=== PATIENT | male | born 1940 | race Caucasian/White ===

== ENCOUNTER 2022-08-31 17:56 | Inpatient (IN) | payer MEDICARE, OTHER, SELFPAY ==
[2022-08-31 17:58] VITALS: BP 151/65; PULSE 67; RESP 20; TEMP 36.2; O2SAT 91; BMI 21.9
--- NOTE | 2022-08-31 18:48 | EKG12_ITS ---
Test Reason : LOWER EXREMITY PAIN Blood Pressure : / mmHG Vent. Rate : 083 BPM Atrial Rate : 083 BPM P-R Int : 164 ms QRS Dur : 078 ms QT Int : 368 ms P-R-T Axes : 075 -30 051 degrees QTc Int : 432 ms Sinus rhythm with occasional Premature ventricular complexes Left axis deviation Nonspecific T wave abnormality Abnormal ECG Confirmed by RAINE YARBROUGH, ANJEL ([id number]), art editor WHITNEY EMERSON ([id number]) on 09/04/2022 11:07:30 AM Referred By: Confirmed By:CHRISTIANNE NI MD
[2022-08-31] MEDS: Ondansetron 4 MG/2 ML Vial IV (18:56)
[2022-08-31] MEDS: Morphine 4 MG/ML Syringe IV (18:56)
--- NOTE | 2022-08-31 19:15 | EDS_ITS ---
HPI History of Present Illness Chief Complaint: Lower Extremity Injury Narrative Narrative: 82-year-old male presenting via EMS for initial report of abdominal pain. He reports that his bilateral legs hurt. He states his abdomen does not hurt. Patient is a very poor informant. He does state that he lives at home alone. He has minimal help. He denies history of fall. He does appear to be confused. He cannot really give a good medical history. The most I can tell is that he has had pain in his legs for 2 days. He states he cannot walk. PFSH PFSH Medical History no medical history Home Medications aspirin 325 mg tablet 325 mg PO DAILY@0800 08/12/15 [History Last Taken Unknown] Allergy/AdvReac Type Severity Reaction Status Date / Time No Known Allergies Allergy Verified 08/31/22 17:58 Family History (Updated 08/31/22 @ 21:[address] Mikey Berger MD) Other Cancer Heart disease Surgical History no surgical history Social History Smoking Status: Former smoker ROS ROS ED Constitutional Constitutional ED: Denies chills or fever(s) Eyes Eyes: Denies change in vision or diplopia ENT ENT ED: Denies rhinorrhea or sore throat Cardiovascular Cardiovascular: Denies chest pain or palpitations Respiratory/Chest Respiratory/Chest: Denies cough or dyspnea Gastrointestinal Gastrointestinal: Denies abdominal pain, nausea or vomiting Genitourinary Genitourinary ED: Denies dysuria or hematuria Musculoskeletal Musculoskeletal: Reports other Details: Bilateral leg pain Integumentary Denies abscess Neurologic Neurologic: Denies headache(s) or paresthesias Psychiatric Psychiatric: Denies anxiety or depression EXAM Physical Exam Const Vital Signs: 08/31/22 17:58 08/31/22 21:09 08/31/22 21:22 Temperature 97.1 F L Temperature Source Temporal Pulse Rate 67 90 Respiratory Rate 20 H 22 H Blood Pressure 151/65 H 134/101 H Blood Pressure Mean 93 112 Pulse Ox 91 88 87 Oxygen Delivery Method Room Air Nasal Cannula Nasal Cannula Oxygen Flow Rate (L/min) 4 4 Positive well nourished General Appearance ED: NAD; Negative for pallor HEENT Reports dry mucous membranes Negative for trauma Mouth ED: Yes dry mucous membranes Mouth: dry mucous membranes Eyes PERRL and EOMs intact bilaterally General Eye ED: Negative for pale conjunctiva Resp normal respiratory effort and clear to auscultation bilaterally Auscultation: Negative for rales, rhonchi or wheezes Cardio regular rate and regular rhythm GI normal to inspection, nondistended, normoactive bowel sounds Extremity Extremity Narrative: Tenderness to palpation over the left hip. Left leg is not shortened or externally rotated. Patient cannot flex the hip up off the bed without pain. There is tenderness to palpation over the proximal right thigh without evidence of deformity or trauma. Neuro CN's II-XII intact bilaterally Neuro Narrative: Confused Sensorium / Orientation: alert Motor Exam: general weakness Skin General Skin Exam: Negative for jaundice or pallor MDM MDM MDM Narrative Medical decision making narrative: Reviewed the patient's medical record on clinic thank shows that he has history of CVA, hypertension, dysarthria, anarthria, CKD, hyperlipidemia, cerebral a neurysm. Patient is a very poor informant. I obtain basic lab work. Patient planing bilateral thigh pain. X-rays of the pelvis and hips bilaterally on my interpretation show no acute fracture or subluxation. Patient was given morphine and Zofran for pain. CPK within normal limits at 200. Renal function is improved from 2015. CBC unremarkable. Electrolytes unremarkable. Patient noted to be hypoxic and required to put on oxygen. He was 88% on room air. He is requiring 4 L at this point. EKG on my interpretation shows sinus rhythm with ventricular rate of 83 bpm without sign of ischemic change or dysrhythmia. Chest x-ray on my interpretation shows no acute cardiopulmonary process and radiologist toxicity agrees. Because of his confusion that is acute and his inability give history I did obtain a CT of the brain which is negative for acute intracranial findings. It does show encephalomalacia. Patient tested positive for COVID-19 today. Since he is hypoxic he was given Decadron. I think for this reason he will need to be hospitalized. I discussed with the hospitalist for admission. Impression: 1. Acute delirium 2. Bilateral thigh pain 3. COVID-19 4. Hypoxic respiratory failure Lab Data Attestation: I reviewed the patient's lab results. Labs: Laboratory Results - last 24 hr 08/31/22 08/31/22 08/31/22 18:07 18:07 18:07 WBC 7.2 RBC 5.60 Hgb 16.0 Hct 49.5 MCV 88.4 MCH 28.6 MCHC 32.3 RDW Std Deviation 47.5 H RDW Coeff of Rosalie 14.6 Plt Count 338 MPV 9.7 Immature Gran % (Auto) 0.600 Neut % (Auto) 76.7 H Lymph % (Auto) 14.9 L [place] % (Auto) 7.2 Eos % (Auto) 0.3 Baso % (Auto) 0.3 Absolute Neuts (auto) 5.6 Absolute Lymphs (auto) 1.08 Nucleated RBC % 0 Sodium 143 Potassium 4.0 Chloride 111 H Carbon Dioxide 26.0 Anion Gap 6 BUN 26 H Creatinine 1.55 H Estim Creat Clear Calc 32.95 Est GFR (MDRD) Af Amer 55 L Est GFR (MDRD) Non-Af 46 L BUN/Creatinine Ratio 16.8 Glucose 102 Calcium 10.2 H Total Bilirubin 0.70 AST 50 H ALT 55 Alkaline Phosphatase 128 H Total Creatine Kinase 200 Troponin I High Sens 22 Total Protein 7.4 Albumin 3.5 Globulin 3.9 Albumin/Globulin Ratio 0.9 Urine Color Urine Clarity Urine pH Ur Specific [place] Urine Protein Urine Glucose (UA) Urine Ketones Urine Occult Blood Urine Nitrite Urine Bilirubin Urine Urobilinogen Ur Leukocyte Esterase Urine RBC Urine WBC Ur Squamous Epith Cells Urine Bacteria Urine Mucus 08/31/22 19:27 WBC RBC Hgb Hct MCV MCH MCHC RDW Std Deviation RDW Coeff of Rosalie Plt Count MPV Immature Gran % (Auto) Neut % (Auto) Lymph % (Auto) [place] % (Auto) Eos % (Auto) Baso % (Auto) Absolute Neuts (auto) Absolute Lymphs (auto) Nucleated RBC % Sodium Potassium Chloride Carbon Dioxide Anion Gap BUN Creatinine Estim Creat Clear Calc Est GFR (MDRD) Af Amer Est GFR (MDRD) Non-Af BUN/Creatinine Ratio Glucose Calcium Total Bilirubin AST ALT Alkaline Phosphatase Total Creatine Kinase Troponin I High Sens Total Protein Albumin Globulin Albumin/Globulin Ratio Urine Color Yellow Urine Clarity Clear Urine pH 5.0 Ur Specific [place] 1.020 Urine Protein 30 H Urine Glucose (UA) Normal Urine Ketones 5 H Urine Occult Blood 10 H Urine Nitrite Negative Urine Bilirubin Negative Urine Urobilinogen Normal Ur Leukocyte Esterase Negative Urine RBC 0 SEEN Urine WBC 0-5 SEEN Ur Squamous Epith Cells 0 SEEN Urine Bacteria 0 SEEN Urine Mucus 0 SEEN Radiography Diagnostic Testing: Clinical Impression(s) from Imaging Studies Brain CT 08/31/22 19:17 IMPRESSION: High right parietal lobe encephalomalacia is favored over acute infarct. No other acute abnormal intracranial finding. Electronically Signed: Jorge Pinto MD at 20:14 EST , Chest X-Ray 08/31/22 19:20 IMPRESSION: No acute abnormal cardiopulmonary finding. Electronically Signed: Jorge Pinto MD at 19:59 EST , Hip/Pelvis X-Ray 08/31/22 19:20 IMPRESSION: No acute abnormal finding in the pelvis or either hip. Electronically Signed: Jorge Pinto MD at 20:02 EST , Discharge Plan Triage Chief Complaint: Lower Extremity Injury Other Complaint: Abd Pain ED Provider: Neri Oh Dx/Rx/DC Orders Prescriptions: No Action aspirin 325 MG tablet 325 mg PO DAILY@0800 Primary Care Provider: Noah Oneil Referrals: Noah Oneil MD [Primary Care Provider] -
--- NOTE | 2022-08-31 19:17 | CT_ITS ---
STUDY: CT BRAIN WITHOUT CONTRAST REASON FOR EXAM: Male, 82 years old. Confusion RADIATION DOSAGE (If Supplied By Facility): CTDIvol = ( 44.99 ) mGy, DLP = ( 829.5 ) mGycm TECHNIQUE: Transaxial CT imaging of the brain was performed without administration of intravenous contrast material. Individualized dose optimization techniques were used for this CT. COMPARISON: 08/12/2015 FINDINGS: Normal soft tissue structures. Normal calvarium. Normal size ventricles and extra-axial spaces for the patient''s age. Normal white matter tracts of the cerebral hemispheres. Normal basal ganglia and thalami. Normal brainstem. Normal cerebellum. There is no intracranial hemorrhage. Hypoattenuation involving the cortex and white matter of the high right parietal lobe. Scattered paranasal sinus mucosal thickening and fluid. Bilateral ocular lens replacements. CT/Brain/Head without Contrast IMPRESSION: High right parietal lobe encephalomalacia is favored over acute infarct. No other acute abnormal intracranial finding. Electronically Signed: Jorge Pinto MD at 20:14 EST ,
--- NOTE | 2022-08-31 19:20 | RAD_ITS ---
STUDY: X-RAY CHEST REASON FOR EXAM: Male, 82 years old. Hypoxia TECHNIQUE: Single AP portable view of the chest. COMPARISON: None. FINDINGS: The lungs are clear and expanded. There is no demonstrated pleural abnormality. Normal size heart. Normal mediastinum and bob. Normal visualized pulmonary arteries. There is atherosclerotic calcification of the aortic arch with tortuosity. There is no demonstrated abnormality of the visualized soft tissue structures of the upper abdomen. RAD/Chest 1 View (Portable) IMPRESSION: No acute abnormal cardiopulmonary finding. Electronically Signed: Jorge Pinto MD at 19:59 EST ,
--- NOTE | 2022-08-31 19:20 | RAD_ITS ---
STUDY: X-RAY - PELVIS AND BILATERAL HIPS REASON FOR EXAM: Male, 82 years old. Bilateral hip pain TECHNIQUE: AP view of the pelvis.? 2 views of the right hip, and 2 views of the left hip were obtained. COMPARISON: None. FINDINGS: There is a non-specific bowel gas pattern. Normal visualized soft tissue structures. There is diffuse demineralization of the osseous structures. No finding of fracture or dislocation. The pelvic ring appears intact. The sacroiliac joints and pubic symphysis are maintained. Both femoral heads appear seated in the acetabula. RAD/Hips B/L min 2 views w/ Pelvis IMPRESSION: No acute abnormal finding in the pelvis or either hip. Electronically Signed: Jorge Pinto MD at 20:02 EST ,
[2022-08-31 19:24] LABS: ALB/GLOB Ratio 0.9 RATIO (0.9-2.4); AST(SGOT) 50 U/L (15-37); Alanine Aminotransfer ALT/SGPT 55 U/L (16-61); Albumin, Serum 3.5 g/dL (3.2-5.0); Alkaline Phosphatase 128 U/L (45-117); Anion Gap 6 (5-15); BUN 26 mg/dL (7-18); BUN/Creat Ratio 16.8 RATIO (10-20); Calcium,Total 10.2 mg/dL (8.5-10.1); Chloride 111 mmol/L (98-107); Creatinine, Serum 1.55 mg/dL (0.70-1.30); EST Glomerular Filtration Rate 46 mL/min (>60); Est Glom Filt Rate - Afr Amer 55 mL/min (>60); Estimated Creatinine Clearance 32.95 ml/min; Globulin 3.9 g/dL (2.2-4.2); Glucose 102 mg/dL (74-106); Protein, Total 7.4 g/dL (6.4-8.2); Sodium Level 143 mmol/L (136-145); Troponin-I HS 22 pg/mL (3.0-78.0)
[2022-08-31 19:26] LABS: CPK Total, Creatine Kinase 200 U/L (39-308)
[2022-08-31 19:32] LABS: Bacteria 0 SEEN /hpf (None Seen); Mucous, Urine 0 SEEN /hpf (<or=2+); Red Blood Cells-Urine 0 SEEN /hpf (0-5); Squamous Epithelial Cells - UA 0 SEEN /hpf (0-5)
[2022-08-31 19:35] LABS: Color, Urine Yellow (Yellow); Glucose, Dipstick Normal (Normal); Ketone-Dipstick 5 mg/dl (Negative); Leukocyte Esterase-Dipstick Negative /ul (Negative); Nitrite-Dipstick Negative (Negative); Occult Blood-Urine 10 /ul (Negative); Protein-Dipstick 30 mg/dl (Negative); Urine Bilirubin Dipstick Negative (Negative); Urine Clarity Clear (Clear); Urine Urobilinogen Normal (Normal)
[2022-08-31 19:42] LABS: White Blood Cells 0-5 SEEN /hpf (0-5)
--- NOTE | 2022-08-31 20:15 | ED.RN ---
PT NOTED TO BE 88% ON ROOM AIR, 3L NC APPLIED
--- NOTE | 2022-08-31 20:45 | PCM.HP.STD ---
HPI - General General Date of Admission: 08/31/22 Date of Service: 08/31/22 Chief Complaint: Abdominal pain and a bilateral thigh pain HPI Narrative MICHAELA COHEN, is a 82 M who presents to the emergency department complaining of abdominal pain and bilateral thigh pain . Patient states that he does not know how long his symptoms has been going on. His grandson who was at bedside said that his symptoms has worsened. Patient does not contribute to history except as stated above. Unable to obtain review of systems as patient does not contribute to history and information from grandson is limited.. COVID-19 test at the emergency department came back positive. Of note patient grandson who was at the bedside stated patient has had about 2 doses of COVID-19 immunizations. [facility] Medical History (Updated 08/31/22 @ 23:36 by Naun Shetty) Stroke/cerebrovascular accident Medical History no medical history Home Medications aspirin 325 mg tablet 325 mg PO DAILY@0800 08/12/15 [History Last Taken Unknown] Allergy/AdvReac Type Severity Reaction Status Date / Time No Known Allergies Allergy Verified 08/31/22 17:58 Family History (Updated 08/31/22 @ 21:[address] Mikey Berger MD) Other Cancer Heart disease Surgical History no surgical history no surgical history Social History Smoking Status: Former smoker ROS Review of Systems ROS Unobtainable: other Details: Upon questioning patient does not provide any other information except as stated in HPI. Vital Signs Vital Signs Vital Signs: 08/31/22 17:58 Temperature 97.1 F L Temperature Source Temporal Pulse Rate 67 Respiratory Rate 20 H Blood Pressure 151/65 H Blood Pressure Mean 93 Pulse Ox 91 Oxygen Delivery Method Room Air Weight Weight: 63.4 kg Body Mass Index (BMI) 21.9 Physical Exam Narrative Physical exam: General: Well-nourished, well-developed. Head: Normocephalic, atraumatic, no tenderness Eyes: Vision is grossly intact. EOMI ENT, no trauma, moist mucous membranes, no rhinorrhea Neck: Nontender, No thyromegaly. CVS: Regular rate and rhythm. S1-S2 present. No murmur, gallop or rub. Respiratory : clear to auscultation bilaterally, chest wall nontender, no wheezing Abdomen: Soft, nontender, nondistended, normal bowel sounds, no masses : Deferred Back: Nontender, no CVA tenderness Extremities: Nontender full range of motion, no trauma Skin: Normal color, no trauma, abrasions Neuro: Alert, oriented, cranial nerves II through XII grossly intact. Psychiatry: Normal mood. Normal affect. Not depressed. Not anxious. Results Lab / Micro Data Result Diagrams: 08/31/22 18:07 08/31/22 18:07 Labs: Laboratory Results - last 24 hr 08/31/22 18:07: Sodium 143, Potassium 4.0, Chloride 111 H, Carbon Dioxide 26.0, Anion Gap 6, BUN 26 H, Creatinine 1.55 H, Estim Creat Clear Calc 32.95, Est GFR (MDRD) Af Amer 55 L, Est GFR (MDRD) Non-Af 46 L, BUN/Creatinine Ratio 16.8, Glucose 102, Calcium 10.2 H, Total Bilirubin 0.70, AST 50 H, ALT 55, Alkaline Phosphatase 128 H, Troponin I High Sens 22, Total Protein 7.4, Albumin 3.5, Globulin 3.9, Albumin/Globulin Ratio 0.9 08/31/22 18:07: Total Creatine Kinase 200 08/31/22 19:27: Urine Color Yellow, Urine Clarity Clear, Urine pH 5.0, Ur Specific [place] 1.020, Urine Protein 30 H, Urine Glucose (UA) Normal, Urine Ketones 5 H, Urine Occult Blood 10 H, Urine Nitrite Negative, Urine Bilirubin Negative, Urine Urobilinogen Normal, Ur Leukocyte Esterase Negative, Urine RBC 0 SEEN, Urine WBC 0-5 SEEN, Ur Squamous Epith Cells 0 SEEN, Urine Bacteria 0 SEEN, Urine Mucus 0 SEEN Micro: Microbiology 08/31/22 18:45 Nasal Secretion SARS-CoV-2 & FLU Antigen (Rapid) - Final SARS-CoV-2 (COVID 19) Radiology Impression Brain CT 08/31/22 19:17 IMPRESSION: High right parietal lobe encephalomalacia is favored over acute infarct. No other acute abnormal intracranial finding. Electronically Signed: Jorge Pinto MD at 20:14 EST , Chest X-Ray 08/31/22 19:20 IMPRESSION: No acute abnormal cardiopulmonary finding. Electronically Signed: Jorge Pinto MD at 19:59 EST , Hip/Pelvis X-Ray 08/31/22 19:20 IMPRESSION: No acute abnormal finding in the pelvis or either hip. Electronically Signed: Jorge Pinto MD at 20:02 EST , Assessment & Plan Assessment/Plan (1) COVID-19: (2) Bilateral leg pain: (3) Hypoxia: PLAN: Plan COVID-19 with hypoxia Require supplemental oxygenation on presentation. Positive coronavirus test outpatient. Impression of chest x-ray by radiologist: No acute abnormal cardiopulmonary findings. Actual chest x-ray image was independently interpreted. I agree with radiologist interpretation. Received dexamethasone IV at emergency department. Decadron p.o. ordered. AST is only mildly elevated. Creatinine clearance is more than 30. Remdesivir ordered. CBC showed normal white count. Trend CBC and CMP. Urinalysis unremarkable. Bilateral leg pain Hip and pelvis x-ray with no acute abnormality. As needed oxycodone ordered. Acute encephalopathy Likely from COVID. Treatment of COVID as above. CT brain with encephalomalacia. DVT prophylaxis: Subcutaneous Lovenox ordered. Charges/Coding Visit Charges Inpatient E&M: 77003 Init Hosp L3
[2022-08-31 21:09] VITALS: BP 134/101; PULSE 90; RESP 22; O2SAT 88
[2022-08-31 21:22] VITALS: O2SAT 87
[2022-08-31] MEDS: dexAMETHasone 10 MG/ML Vial 6 MG IV (21:27)
[2022-08-31 21:30] LABS: Absolute Lymphocyte Count 1.08 X10^3/uL (0.83-4.51); Absolute Neutrophil Count 5.6 X10^3/uL (2.0-7.7); Basophil# 0.02 X10^3/uL; Basophil% 0.3 % (0-1); Eosinophil# 0.02 X10^3/uL; Eosinophils% 0.3 % (0-5); Hematocrit 49.5 % (40-54); Lymphocyte # 1.08 X10^3/ul (0.83-4.51); Lymphocyte % 14.9 % (19-41); Mean Corp Hgb Conc 32.3 g/dL (32-36); Mean Corpuscular Hgb 28.6 pg (27.0-32.0); Mean Corpuscular Volume 88.4 fL (80-94); Mean Platelet Vol. 9.7 fl (6.2-12.0); Monocyte# 0.52 X10^3/uL; Monocyte% 7.2 % (0-10); NRBC Flagged by Analyzer 0 % (0-5); Neutrophil # 5.55 X10^3/uL (2.7-7.7); Neutrophil % 76.7 % (47-70); Platelet Count 338 K/mm3 (150-450); RBC Distribution Width CV 14.6 % (11.6-14.6); RBC Distribution Width SD 47.5 fl (35.1-43.9); White Blood Count 7.2 K/mm3 (4.4-11.0)
[2022-08-31 22:04] VITALS: BP 134/101; PULSE 71; RESP 22; TEMP 37; O2SAT 95
[2022-08-31 23:00] VITALS: BP 131/104; PULSE 61; RESP 22; TEMP 37; O2SAT 91; O2SAT 93
[2022-08-31 23:29] VITALS: BMI 20.9
[2022-09-01] VITALS (18 sets, daily range): BP systolic 90–106; BP diastolic 44–58; PULSE 50–69; RESP 18–20; TEMP 36.4–37.3; O2SAT 88–95
[2022-09-01] MEDS: Enoxaparin 30 MG/0.3 ML Syringe SC ×3 (00:06→20:43)
[2022-09-01 07:48] LABS: Absolute Lymphocyte Count 0.77 X10^3/uL (0.83-4.51); Absolute Neutrophil Count 11.6 X10^3/uL (2.0-7.7); Basophil# 0.01 X10^3/uL; Basophil% 0.1 % (0-1); Hematocrit 44.5 % (40-54); Hemoglobin 14.2 g/dL (13.0-16.5); Lymphocyte # 0.77 X10^3/ul (0.83-4.51); Lymphocyte % 5.9 % (19-41); Mean Corp Hgb Conc 31.9 g/dL (32-36); Mean Corpuscular Hgb 28.3 pg (27.0-32.0); Mean Corpuscular Volume 88.8 fL (80-94); Mean Platelet Vol. 9.4 fl (6.2-12.0); Monocyte# 0.49 X10^3/uL; Monocyte% 3.8 % (0-10); NRBC Flagged by Analyzer 0 % (0-5); Neutrophil % 89.5 % (47-70); Platelet Count 294 K/mm3 (150-450); RBC Distribution Width CV 14.4 % (11.6-14.6); RBC Distribution Width SD 46.5 fl (35.1-43.9); Red Blood Count 5.01 M/mm3 (4.6-6.2)
[2022-09-01 08:15] LABS: ALB/GLOB Ratio 0.8 RATIO (0.9-2.4); AST(SGOT) 40 U/L (15-37); Alanine Aminotransfer ALT/SGPT 43 U/L (16-61); Albumin, Serum 2.7 g/dL (3.2-5.0); Alkaline Phosphatase 100 U/L (45-117); Anion Gap 9 (5-15); BUN 24 mg/dL (7-18); BUN/Creat Ratio 15.7 RATIO (10-20); Calcium,Total 8.9 mg/dL (8.5-10.1); Chloride 112 mmol/L (98-107); Creatinine, Serum 1.53 mg/dL (0.70-1.30); EST Glomerular Filtration Rate 47 mL/min (>60); Est Glom Filt Rate - Afr Amer 56 mL/min (>60); Globulin 3.5 g/dL (2.2-4.2); Glucose 113 mg/dL (74-106); Potassium 3.8 mmol/L (3.5-5.1); Protein, Total 6.2 g/dL (6.4-8.2); Sodium Level 143 mmol/L (136-145)
[2022-09-01] MEDS: Aspirin 325 MG Tablet PO (08:25)
[2022-09-01] MEDS: dexAMETHasone 4 MG Tablet 6 MG PO (08:25)
--- NOTE | 2022-09-01 09:56 | PN.HOSP_ITS ---
Subjective Subjective No issues overnight, maintaining his oxygen saturations on 6 L nasal cannula. Objective Data Objective Data Vital Signs: Vital Signs Temp Pulse Resp BP Pulse Ox O2 Del Method O2 Flow Rate 98 F 61 18 90/44 L 92 Nasal Cannula 6 09/01/22 08:18 09/01/22 08:18 09/01/22 08:18 09/01/22 08:18 09/01/22 08:18 09/01/22 08:18 09/01/22 08:18 Oxygen Flow Rate (L/min) 6 Oxygen Delivery Method Nasal Cannula Weight: 134 lb Body Mass Index (BMI) 20.9 Intake & Output: Intake and Output for Last 24 Hours 08/31/22 09/01/22 09/02/22 03:59 03:59 03:59 Intake Total 1050 / 1050 400 / 400 Output Total 150 / 150 250 / 250 Balance 900 / 900 150 / 150 Lab / Micro Data Result Diagrams: 09/01/22 07:36 09/01/22 07:36 Labs: Laboratory Results - last 24 hr 08/31/22 18:07: Sodium 143, Potassium 4.0, Chloride 111 H, Carbon Dioxide 26.0, Anion Gap 6, BUN 26 H, Creatinine 1.55 H, Estim Creat Clear Calc 32.95, Est GFR (MDRD) Af Amer 55 L, Est GFR (MDRD) Non-Af 46 L, BUN/Creatinine Ratio 16.8, Glucose 102, Calcium 10.2 H, Total Bilirubin 0.70, AST 50 H, ALT 55, Alkaline Phosphatase 128 H, Troponin I High Sens 22, Total Protein 7.4, Albumin 3.5, Globulin 3.9, Albumin/Globulin Ratio 0.9 08/31/22 18:07: Total Creatine Kinase 200 08/31/22 18:07: WBC 7.2, RBC 5.60, Hgb 16.0, Hct 49.5, MCV 88.4, MCH 28.6, MCHC 32.3, RDW Std Deviation 47.5 H, RDW Coeff of Rosalie 14.6, Plt Count 338, MPV 9.7, Immature Gran % (Auto) 0.600, Neut % (Auto) 76.7 H, Lymph % (Auto) 14.9 L, [place] % (Auto) 7.2, Eos % (Auto) 0.3, Baso % (Auto) 0.3, Absolute Neuts (auto) 5.6, Absolute Lymphs (auto) 1.08, Nucleated RBC % 0 08/31/22 19:27: Urine Color Yellow, Urine Clarity Clear, Urine pH 5.0, Ur Specific [place] 1.020, Urine Protein 30 H, Urine Glucose (UA) Normal, Urine Ketones 5 H, Urine Occult Blood 10 H, Urine Nitrite Negative, Urine Bilirubin Negative, Urine Urobilinogen Normal, Ur Leukocyte Esterase Negative, Urine RBC 0 SEEN, Urine WBC 0-5 SEEN, Ur Squamous Epith Cells 0 SEEN, Urine Bacteria 0 SEEN, Urine Mucus 0 SEEN 09/01/22 07:36: WBC 13.0 H, RBC 5.01, Hgb 14.2, Hct 44.5, MCV 88.8, MCH 28.3, MCHC 31.9 L, RDW Std Deviation 46.5 H, RDW Coeff of Rosalie 14.4, Plt Count 294, MPV 9.4, Immature Gran % (Auto) 0.700, Neut % (Auto) 89.5 H, Lymph % (Auto) 5.9 L, [place] % (Auto) 3.8, Eos % (Auto) 0.0, Baso % (Auto) 0.1, Absolute Neuts (auto) 11.6 H, Absolute Lymphs (auto) 0.77 L, Nucleated RBC % 0 09/01/22 07:36: Sodium 143, Potassium 3.8, Chloride 112 H, Carbon Dioxide 22.0, Anion Gap 9, BUN 24 H, Creatinine 1.53 H, Estim Creat Clear Calc 32.00, Est GFR (MDRD) Af Amer 56 L, Est GFR (MDRD) Non-Af 47 L, BUN/Creatinine Ratio 15.7, Glucose 113 H, Calcium 8.9, Total Bilirubin 0.40, AST 40 H, ALT 43, Alkaline Phosphatase 100, Total Protein 6.2 L, Albumin 2.7 L, Globulin 3.5, Albumin/Globulin Ratio 0.8 L Micro: Microbiology 08/31/22 18:45 Nasal Secretion SARS-CoV-2 & FLU Antigen (Rapid) - Final SARS-CoV-2 (COVID 19) Radiography Diagnostic Testing: Radiology Impression Brain CT 08/31/22 19:17 IMPRESSION: High right parietal lobe encephalomalacia is favored over acute infarct. No other acute abnormal intracranial finding. Electronically Signed: Jorge Pinto MD at 20:14 EST , Chest X-Ray 08/31/22 19:20 IMPRESSION: No acute abnormal cardiopulmonary finding. Electronically Signed: Jorge Pinto MD at 19:59 EST , Hip/Pelvis X-Ray 08/31/22 19:20 IMPRESSION: No acute abnormal finding in the pelvis or either hip. Electronically Signed: Jorge Pinto MD at 20:02 EST , Physical Exam Narrative General: Alert, Cooperative, No apparent distress HEENT: Atraumatic, PERRLA, EOMI, Normocephalic Oral: Moist Mucosa Neck: Supple, No JVD Lungs: Diminished, Normal air movement, No rhonchi, wheeze, No rales Cardiovascular: Regular rate, Regular Rhythm, Normal S1, Normal S2, No murmurs Abdomen: Soft, Non Tender, Non-Distended, No Hepato-splenomegaly Extremities: No edema, Capillary Refill Less than 3 Seconds Skin: No rashes, No breakdown Musculoskeletal: No Tenderness to Palpation of Joints or Extremities Neurological: Cranial nerves II-XII grossly intact, Motor Exam 5/5 strength throughout, Sensory exam intact to light touch and pain Psych/Mental Status: Normal Affect, Appropriate Assessment & Plan Assessment/Plan (1) COVID-19: (2) Bilateral leg pain: (3) Hypoxia: PLAN: Plan 1. Acute hypoxic respiratory failure secondary to COVID-19 with metabolic encephalopathy ? Continue with oxygen as well as Decadron ? Given symptom onset he was a candidate for remdesivir we will continue and monitor his renal function ?Can plan on some duo nebs to help with any shortness of breath ? She does not take any medications as an outpatient however his blood pressure has been trending down overnight, most patients do not do well with IV fluids in the setting of COVID so may proceed with midodrine to help boost his blood pressure if it stays low ? Creatinine does appear to be improving but unsure as to what his baseline is DVT: [place] Charges/Coding Visit Charges Inpatient E&M: 54319 Subs Hosp L2
[2022-09-01] MEDS: Ipratropium/Albuterol Sulfate 3 ML AMPUL.NEB INHALATION ×4 (11:29→22:30)
--- NOTE | 2022-09-01 15:40 | NURSING ---
This RN bladder scanned pt after noticing that there was minimal UO since shift started. Bladder scan showed about 325ml of urine. Encouraged pt to get up and use restroom. This was effective, pt was able to void in toilet. Will continue to monitor
--- NOTE | 2022-09-01 16:05 | CASEMGMT ---
MARAH HOLLINGSWORTH Assessment: Face to Face with pt for initial transition planning/care coordination assessment. RN DARRICK introduced self and role at [facility], pt voices understanding and consents to assessment. Pt is A/O x4 and answers all questions appropriately at this time. Pt sitting up in chair with oxygen on in no distress although pt does yell out in anger during certain answers of the assessment. Care providers, pharmacy, and demographics verified/updated. Admitting Dx: COVID 19 infection, hypoxia, debility PCP:Clarice Specialists:Pt denies. [facility]erred [facility]acy: [facility] Insurance: ROSA MARIA Quinceennamdi Prescription Benefit: yes LNOK: Raza Bone, grandson; Casa Motley, brother Living Arrangements: Pt lives alone in a second floor apt with an elevator or steps to enter. Pt states he is usually I in ADL's and denies concerns at home. Transportation: Pt brother transports him to medical appts. DME/HHC/SNF: Pt has an electric scooter and cane at home. Pt denies hx of HHC or SNF stays but states Santa does his laundry. He states he privately pays for her. Pt states no concerns with going home at time of dc. Discussed if pt would be interested in home therapy, pt states not particularly. Pt is not open to discussing oxygen at this time. RN CM to follow. Pt states no further concerns/needs. CM to follow. Advised pt to ask CM if any further question/concerns/needs arise, voices understanding. Pt Goal: Home Plan: TBD, follow therapy and oxygen needs.
--- NOTE | 2022-09-01 23:20 | CPS ---
Rn stated patient keeps desating. After bronchodilator, humidity was added to HFNC. Patient up in the 90's following said interventions.
[2022-09-02] VITALS (20 sets, daily range): BP systolic 94–121; BP diastolic 40–61; PULSE 53–72; RESP 18–20; TEMP 36.3–37; O2SAT 84–94
--- NOTE | 2022-09-02 00:49 | NURSING ---
po drop to 84% on 10l. Pt was fidgeting in bed. Increased high sabine to 12l and requested resp to change to airvo. PT desats w any activity noted. encourage pt to sleep.
--- NOTE | 2022-09-02 01:37 | CPS ---
RN called stating patient was 84% on 10 HFNC. AIRVO was begun at 40L 50% sat at 93%. Pt will not keep nasal pillows in nares consistently.
--- NOTE | 2022-09-02 03:11 | NURSING ---
Pt restless. Pt takes 02 off and desats. This nurse sat w pt to prevent 02 from being removed.
--- NOTE | 2022-09-02 03:25 | NURSING ---
airvo increased 40l and fi02 63% pulse ox remain at 86% increased to 72%
[2022-09-02 05:55] LABS: Base Excess -6 mmol/L (-2 to +2); Bicarbonate 18.4 mmol/L (22-26); Blood Gas Specimen Type ART; FI02 60; O2 Delivery Device Vapotherm; PO2 82 mmHG (75-100); SITE L Radial; SO2 97 % (95-99); Total Carbon Dioxide 19 mmol/L; pCO2 27.7 mmHg (35-45); pH 7.43 (7.35-7.45)
[2022-09-02 06:19] LABS: Absolute Lymphocyte Count 0.88 X10^3/uL (0.83-4.51); Absolute Neutrophil Count 16.5 X10^3/uL (2.0-7.7); Basophil# 0.02 X10^3/uL; Basophil% 0.1 % (0-1); Hematocrit 41.5 % (40-54); Hemoglobin 14.1 g/dL (13.0-16.5); Lymphocyte # 0.88 X10^3/ul (0.83-4.51); Lymphocyte % 4.7 % (19-41); Mean Corpuscular Hgb 29.6 pg (27.0-32.0); Mean Platelet Vol. 9.8 fl (6.2-12.0); Monocyte# 1.02 X10^3/uL; Monocyte% 5.5 % (0-10); NRBC Flagged by Analyzer 0 % (0-5); Neutrophil # 16.52 X10^3/uL (2.7-7.7); Neutrophil % 88.8 % (47-70); Platelet Count 327 K/mm3 (150-450); RBC Distribution Width CV 14.5 % (11.6-14.6); RBC Distribution Width SD 46.3 fl (35.1-43.9); Red Blood Count 4.77 M/mm3 (4.6-6.2); White Blood Count 18.6 K/mm3 (4.4-11.0)
[2022-09-02 07:09] LABS: ALB/GLOB Ratio 0.8 RATIO (0.9-2.4); AST(SGOT) 35 U/L (15-37); Alanine Aminotransfer ALT/SGPT 39 U/L (16-61); Albumin, Serum 2.6 g/dL (3.2-5.0); Alkaline Phosphatase 102 U/L (45-117); Anion Gap 7 (5-15); BUN 32 mg/dL (7-18); BUN/Creat Ratio 21.8 RATIO (10-20); Chloride 112 mmol/L (98-107); Creatinine, Serum 1.47 mg/dL (0.70-1.30); EST Glomerular Filtration Rate 49 mL/min (>60); Est Glom Filt Rate - Afr Amer 59 mL/min (>60); Estimated Creatinine Clearance 33.31 ml/min; Globulin 3.2 g/dL (2.2-4.2); Glucose 129 mg/dL (74-106); Potassium 3.7 mmol/L (3.5-5.1); Protein, Total 5.8 g/dL (6.4-8.2); Sodium Level 140 mmol/L (136-145)
[2022-09-02] MEDS: Ipratropium/Albuterol Sulfate 3 ML AMPUL.NEB INHALATION ×4 (07:54→19:59)
--- NOTE | 2022-09-02 09:16 | PCM.PN.HOSP ---
Subjective Subjective Feels well, had increased oxygen overnight and is currently on air Vo. He denies any significant shortness of breath. Objective Data Objective Data Vital Signs: Vital Signs Temp Pulse Resp BP Pulse Ox O2 Del Method O2 Flow Rate 98.2 F 63 20 H 94/40 L 91 Airvo 55 09/02/22 08:22 09/02/22 08:22 09/02/22 08:22 09/02/22 08:22 09/02/22 08:22 09/02/22 08:22 09/02/22 06:12 FiO2 60 09/02/22 06:12 Oxygen Flow Rate (L/min) 55 Oxygen Delivery Method Airvo Weight: 134 lb Body Mass Index (BMI) 20.9 Intake & Output: Intake and Output for Last 24 Hours 09/01/22 09/02/22 09/03/22 03:59 03:59 03:59 Intake Total 1050 / 1050 2145 / 2145 160 / 160 Output Total 150 / 150 550 / 550 250 / 250 Balance 900 / 900 1595 / 1595 -90 / -90 Lab / Micro Data Result Diagrams: 09/02/22 05:54 09/02/22 05:54 Labs: Laboratory Results - last 24 hr 09/02/22 05:54: WBC 18.6 H, RBC 4.77, Hgb 14.1, Hct 41.5, MCV 87.0, MCH 29.6, MCHC 34.0 D, RDW Std Deviation 46.3 H, RDW Coeff of Rosalie 14.5, Plt Count 327, MPV 9.8, Immature Gran % (Auto) 0.900, Neut % (Auto) 88.8 H, Lymph % (Auto) 4.7 L, Anderson % (Auto) 5.5, Eos % (Auto) 0.0, Baso % (Auto) 0.1, Absolute Neuts (auto) 16.5 H, Absolute Lymphs (auto) 0.88, Nucleated RBC % 0 09/02/22 05:54: Sodium 140, Potassium 3.7, Chloride 112 H, Carbon Dioxide 21.0, Anion Gap 7, BUN 32 H, Creatinine 1.47 H, Estim Creat Clear Calc 33.31, Est GFR (MDRD) Af Amer 59 L, Est GFR (MDRD) Non-Af 49 L, BUN/Creatinine Ratio 21.8 H, Glucose 129 H, Calcium 9.0, Total Bilirubin 0.50, AST 35, ALT 39, Alkaline Phosphatase 102, Total Protein 5.8 L, Albumin 2.6 L, Globulin 3.2, Albumin/Globulin Ratio 0.8 L Micro: Microbiology 08/31/22 18:45 Nasal Secretion SARS-CoV-2 & FLU Antigen (Rapid) - Final SARS-CoV-2 (COVID 19) ABG Data ABG results: ABG 09/02/22 05:48 Specimen Type ART Sample Site L Radial pH 7.43 Bicarbonate Actual 18.4 L Total CO2 19 Base Excess -6 L O2 Saturation 97 O2 % 60 ABG pCO2 27.7 L ABG pO2 82 O2 Delivery Device Vapotherm Physical Exam Narrative General: Alert, Cooperative, No apparent distress HEENT: Atraumatic, PERRLA, EOMI, Normocephalic Oral: Moist Mucosa Neck: Supple, No JVD Lungs: Diminished, Normal air movement, No rhonchi, wheeze, No rales Cardiovascular: Regular rate, Regular Rhythm, Normal S1, Normal S2, No murmurs Abdomen: Soft, Non Tender, Non-Distended, No Hepato-splenomegaly Extremities: No edema, Capillary Refill Less than 3 Seconds Skin: No rashes, No breakdown Musculoskeletal: No Tenderness to Palpation of Joints or Extremities Neurological: Cranial nerves II-XII grossly intact, Motor Exam 5/5 strength throughout, Sensory exam intact to light touch and pain Psych/Mental Status: Normal Affect, Appropriate Assessment & Plan Assessment/Plan (1) COVID-19: (2) Bilateral leg pain: (3) Hypoxia: PLAN: Plan 1. Acute hypoxic respiratory failure secondary to COVID-19 with metabolic encephalopathy ? Continue with oxygen as well as Decadron ? Given symptom onset he was a candidate for remdesivir we will continue and monitor his renal function ?Can plan on some duo nebs to help with any shortness of breath ? We will give him some Lasix as well start him on Levaquin given his increased oxygen requirement, will obtain a sputum culture ? Creatinine does appear to be improving but unsure as to what his baseline is ? He has had 2 doses of the COVID-vaccine DVT: Lovenox Charges/Coding Visit Charges Inpatient E&M: 26037 Subs Hosp L2
[2022-09-02] MEDS: Furosemide 20 MG/2 ML VIAL IV (09:43)
[2022-09-02] MEDS: Enoxaparin 30 MG/0.3 ML Syringe SC ×2 (09:43→20:42)
[2022-09-02] MEDS: dexAMETHasone 4 MG Tablet 6 MG PO (09:43)
[2022-09-02] MEDS: levoFLOXacin 750 MG Tablet PO (09:44)
[2022-09-02] MEDS: 0.9% Saline Lock 10 ML Syringe IV (09:44)
[2022-09-02] MEDS: Aspirin 325 MG Tablet PO (09:44)
[2022-09-03] VITALS (14 sets, daily range): BP systolic 99–118; BP diastolic 53–72; PULSE 48–75; RESP 16–24; TEMP 36.5–36.9; O2SAT 91–94
[2022-09-03 07:01] LABS: Absolute Lymphocyte Count 0.89 X10^3/uL (0.83-4.51); Absolute Neutrophil Count 13.7 X10^3/uL (2.0-7.7); Basophil# 0.02 X10^3/uL; Basophil% 0.1 % (0-1); Hematocrit 42.3 % (40-54); Hemoglobin 14.1 g/dL (13.0-16.5); Lymphocyte # 0.89 X10^3/ul (0.83-4.51); Lymphocyte % 5.7 % (19-41); Mean Corp Hgb Conc 33.3 g/dL (32-36); Mean Corpuscular Hgb 28.8 pg (27.0-32.0); Mean Corpuscular Volume 86.3 fL (80-94); Mean Platelet Vol. 9.5 fl (6.2-12.0); Monocyte# 0.87 X10^3/uL; Monocyte% 5.6 % (0-10); NRBC Flagged by Analyzer 0 % (0-5); Neutrophil % 87.6 % (47-70); Platelet Count 348 K/mm3 (150-450); RBC Distribution Width CV 14.5 % (11.6-14.6); RBC Distribution Width SD 46.2 fl (35.1-43.9); White Blood Count 15.6 K/mm3 (4.4-11.0)
[2022-09-03] MEDS: Ipratropium/Albuterol Sulfate 3 ML AMPUL.NEB INHALATION ×4 (07:06→20:02)
[2022-09-03 07:33] LABS: ALB/GLOB Ratio 0.7 RATIO (0.9-2.4); AST(SGOT) 37 U/L (15-37); Alanine Aminotransfer ALT/SGPT 43 U/L (16-61); Albumin, Serum 2.4 g/dL (3.2-5.0); Alkaline Phosphatase 90 U/L (45-117); Anion Gap 6 (5-15); BUN 37 mg/dL (7-18); Calcium,Total 9.4 mg/dL (8.5-10.1); Chloride 113 mmol/L (98-107); Creatinine, Serum 1.32 mg/dL (0.70-1.30); EST Glomerular Filtration Rate 55 mL/min (>60); Est Glom Filt Rate - Afr Amer 67 mL/min (>60); Estimated Creatinine Clearance 37.09 ml/min; Globulin 3.4 g/dL (2.2-4.2); Glucose 139 mg/dL (74-106); Potassium 3.9 mmol/L (3.5-5.1); Protein, Total 5.8 g/dL (6.4-8.2); Sodium Level 143 mmol/L (136-145)
[2022-09-03 09:50] LABS: Vitamin D,25 Hydroxy 33.1 ng/mL
[2022-09-03] MEDS: Enoxaparin 30 MG/0.3 ML Syringe SC ×2 (10:21→21:06)
[2022-09-03] MEDS: Aspirin 325 MG Tablet PO (10:21)
[2022-09-03] MEDS: dexAMETHasone 4 MG Tablet 6 MG PO (10:21)
--- NOTE | 2022-09-03 10:58 | PCM.PN.HOSP ---
Subjective Subjective Patient is an 82-year-old male admitted with increasing shortness of breath diagnosed with acute hypoxic respiratory failure secondary to COVID-19 pneumonia Objective Data Objective Data Vital Signs: Vital Signs Temp Pulse Resp BP Pulse Ox O2 Del Method O2 Flow Rate 98.5 F 55 L 16 99/62 91 Airvo 40 09/03/22 10:15 09/03/22 10:34 09/03/22 10:34 09/03/22 10:15 09/03/22 10:34 09/03/22 10:15 09/03/22 10:15 FiO2 55 09/03/22 10:34 Oxygen Flow Rate (L/min) 40 Oxygen Delivery Method Airvo Weight: 60.781 kg Body Mass Index (BMI) 20.9 Intake & Output: Intake and Output for Last 24 Hours 09/01/22 09/02/22 09/03/22 23:59 23:59 23:59 Intake Total 2575 / 2575 1230 / 1580 550 / 550 Output Total 550 / 550 1050 / 1250 525 / 525 Balance 2024 / 2024 180 / 330 25 / 25 Lab / Micro Data Result Diagrams: 09/03/22 06:36 09/03/22 06:36 Labs: Laboratory Results - last 24 hr 09/01/22 07:36: Vitamin D 25-Hydroxy 33.1 09/03/22 06:36: WBC 15.6 H, RBC 4.90, Hgb 14.1, Hct 42.3, MCV 86.3, MCH 28.8, MCHC 33.3, RDW Std Deviation 46.2 H, RDW Coeff of Rosalie 14.5, Plt Count 348, MPV 9.5, Immature Gran % (Auto) 1.000 H, Neut % (Auto) 87.6 H, Lymph % (Auto) 5.7 L, Collier % (Auto) 5.6, Eos % (Auto) 0.0, Baso % (Auto) 0.1, Absolute Neuts (auto) 13.7 H, Absolute Lymphs (auto) 0.89, Nucleated RBC % 0 09/03/22 06:36: Sodium 143, Potassium 3.9, Chloride 113 H, Carbon Dioxide 24.0, Anion Gap 6, BUN 37 H, Creatinine 1.32 H, Estim Creat Clear Calc 37.09, Est GFR (MDRD) Af Amer 67, Est GFR (MDRD) Non-Af 55 L, BUN/Creatinine Ratio 28.0 H, Glucose 139 H, Calcium 9.4, Total Bilirubin 0.50, AST 37, ALT 43, Alkaline Phosphatase 90, Total Protein 5.8 L, Albumin 2.4 L, Globulin 3.4, Albumin/Globulin Ratio 0.7 L Micro: Microbiology 08/31/22 18:45 Nasal Secretion SARS-CoV-2 & FLU Antigen (Rapid) - Final SARS-CoV-2 (COVID 19) Physical Exam Narrative GENERAL: Dyspneic at rest on supplemental oxygen via Airvo HEENT: Atraumatic; normocephalic EYES; Anicteric, Normal Conjunctiva NECK; supple, normal thyroid, RESPIRATORY: Diminished to auscultation CARDIOVASCULAR: Regular S1 S2, GI: soft, normoactive bowel sounds, : No Renal angle tenderness; EXTREMITIES: No edema, no clubbing, MUSCULOSKELETAL: no muscle wasting NEURO: Awake; no lateralizing signs. SKIN: No Rash PSYCH; Flat affect Assessment & Plan Assessment/Plan (1) COVID-19: (2) Bilateral leg pain: (3) Hypoxia: PLAN: Plan Patient is an 82-year-old male admitted with increasing shortness of breath diagnosed with acute hypoxic respiratory failure secondary to COVID-19 pneumonia 1. Acute hypoxic respiratory failure ? Secondary to COVID-19 pneumonia. Patient was placed on supplemental oxygen via nasal cannula advanced to Airvo due to worsening respiratory status. Patient was started on remdesivir. Was also started on antibiotics in view of worsening leukocytosis 2. Acute metabolic encephalopathy ? Secondary to #1 plan is to treat underlying cause 3. BPH ? Patient is on tamsulosin did continue 4. Hypertension - Blood pressure controlled, home medications continued with dose adjustment as needed 5. Dyslipidemia -Patient is on statin therapy, continued at home dose 6. GERD ? Patient with PPI 7. DVT prophylaxis ? On enoxaparin Charges/Coding Visit Charges Inpatient E&M: 19812 Subs Hosp L2
[2022-09-03] MEDS: Tamsulosin HCl 0.4 MG Capsule 0.8 MG PO (15:08)
[2022-09-03] MEDS: 0.9% Saline Lock 10 ML Syringe IV (21:05)
[2022-09-04] VITALS (10 sets, daily range): BP systolic 115–130; BP diastolic 60–67; PULSE 55–76; RESP 18–26; TEMP 36.6–36.9; O2SAT 90–95
[2022-09-04] MEDS: levoFLOXacin 750 MG Tablet PO (05:29)
[2022-09-04 06:53] LABS: Absolute Lymphocyte Count 0.94 X10^3/uL (0.83-4.51); Basophil# 0.02 X10^3/uL; Basophil% 0.1 % (0-1); Hematocrit 40.8 % (40-54); Hemoglobin 13.5 g/dL (13.0-16.5); Lymphocyte # 0.94 X10^3/ul (0.83-4.51); Lymphocyte % 6.8 % (19-41); Mean Corp Hgb Conc 33.1 g/dL (32-36); Mean Corpuscular Hgb 28.4 pg (27.0-32.0); Mean Corpuscular Volume 85.7 fL (80-94); Mean Platelet Vol. 9.7 fl (6.2-12.0); Monocyte# 0.67 X10^3/uL; Monocyte% 4.8 % (0-10); NRBC Flagged by Analyzer 0 % (0-5); Neutrophil # 12.03 X10^3/uL (2.7-7.7); Neutrophil % 86.9 % (47-70); Platelet Count 374 K/mm3 (150-450); RBC Distribution Width CV 14.6 % (11.6-14.6); RBC Distribution Width SD 46.2 fl (35.1-43.9); Red Blood Count 4.76 M/mm3 (4.6-6.2); White Blood Count 13.9 K/mm3 (4.4-11.0)
[2022-09-04] MEDS: Ipratropium/Albuterol Sulfate 3 ML AMPUL.NEB INHALATION ×3 (07:10→15:30)
--- NOTE | 2022-09-04 07:19 | PCM.PN.HOSP ---
Subjective Subjective Patient seen still remains significantly dyspneic at rest and remains on supplemental oxygen via Airvo Objective Data Objective Data Vital Signs: Vital Signs Temp Pulse Resp BP Pulse Ox O2 Del Method O2 Flow Rate 97.8 F 62 26 H 123/67 H 93 Airvo 40 09/04/22 05:28 09/04/22 07:10 09/04/22 07:10 09/04/22 05:28 09/04/22 07:10 09/04/22 07:10 09/04/22 07:10 FiO2 55 09/04/22 07:10 Oxygen Flow Rate (L/min) 40 Oxygen Delivery Method Airvo Weight: 60.781 kg Body Mass Index (BMI) 20.9 Intake & Output: Intake and Output for Last 24 Hours 09/02/22 09/03/22 09/04/22 23:59 23:59 23:59 Intake Total 1230 / 1580 1600 / 1600 500 / 500 Output Total 1050 / 1250 1025 / 1025 800 / 800 Balance 180 / 330 575 / 575 -300 / -300 Lab / Micro Data Result Diagrams: 09/04/22 06:35 09/04/22 06:35 Labs: Laboratory Results - last 24 hr 09/01/22 07:36: Vitamin D 25-Hydroxy 33.1 09/03/22 06:36: Sodium 143, Potassium 3.9, Chloride 113 H, Carbon Dioxide 24.0, Anion Gap 6, BUN 37 H, Creatinine 1.32 H, Estim Creat Clear Calc 37.09, Est GFR (MDRD) Af Amer 67, Est GFR (MDRD) Non-Af 55 L, BUN/Creatinine Ratio 28.0 H, Glucose 139 H, Calcium 9.4, Total Bilirubin 0.50, AST 37, ALT 43, Alkaline Phosphatase 90, Total Protein 5.8 L, Albumin 2.4 L, Globulin 3.4, Albumin/Globulin Ratio 0.7 L 09/04/22 06:35: WBC 13.9 H, RBC 4.76, Hgb 13.5, Hct 40.8, MCV 85.7, MCH 28.4, MCHC 33.1, RDW Std Deviation 46.2 H, RDW Coeff of Rosalie 14.6, Plt Count 374, MPV 9.7, Immature Gran % (Auto) 1.400 H, Neut % (Auto) 86.9 H, Lymph % (Auto) 6.8 L, Haralson % (Auto) 4.8, Eos % (Auto) 0.0, Baso % (Auto) 0.1, Absolute Neuts (auto) 12.0 H, Absolute Lymphs (auto) 0.94, Nucleated RBC % 0 Micro: Microbiology 08/31/22 18:45 Nasal Secretion SARS-CoV-2 & FLU Antigen (Rapid) - Final SARS-CoV-2 (COVID 19) Physical Exam Narrative GENERAL: Dyspneic at rest on supplemental oxygen via Airvo HEENT: Atraumatic; normocephalic EYES; Anicteric, Normal Conjunctiva NECK; supple, normal thyroid, RESPIRATORY: Diminished to auscultation CARDIOVASCULAR: Regular S1 S2, GI: soft, normoactive bowel sounds, : No Renal angle tenderness; EXTREMITIES: No edema, no clubbing, MUSCULOSKELETAL: no muscle wasting NEURO: Awake; no lateralizing signs. SKIN: No Rash PSYCH; Flat affect Assessment & Plan Assessment/Plan (1) COVID-19: (2) Bilateral leg pain: (3) Hypoxia: PLAN: Plan Patient is an 82-year-old male admitted with increasing shortness of breath diagnosed with acute hypoxic respiratory failure secondary to COVID-19 pneumonia 1. Acute hypoxic respiratory failure ? Secondary to COVID-19 pneumonia. Patient was placed on supplemental oxygen via nasal cannula advanced to Airvo due to worsening respiratory status. Patient was started on remdesivir. Was also started on antibiotics in view of worsening leukocytosis -09/04/2022 Patient seen still remains significantly dyspneic at rest and remains on supplemental oxygen via Airvo 2. Acute metabolic encephalopathy ? Secondary to #1 plan is to treat underlying cause 3. BPH ? Patient is on tamsulosin did continue 4. Hypertension - Blood pressure controlled, home medications continued with dose adjustment as needed 5. Dyslipidemia -Patient is on statin therapy, continued at home dose 6. GERD ? Patient with PPI 7. DVT prophylaxis ? On enoxaparin Charges/Coding Visit Charges Inpatient E&M: 73073 Subs Hosp L2
[2022-09-04 07:35] LABS: ALB/GLOB Ratio 0.7 RATIO (0.9-2.4); AST(SGOT) 29 U/L (15-37); Alanine Aminotransfer ALT/SGPT 52 U/L (16-61); Albumin, Serum 2.4 g/dL (3.2-5.0); Alkaline Phosphatase 89 U/L (45-117); Anion Gap 7 (5-15); BUN 41 mg/dL (7-18); BUN/Creat Ratio 32.5 RATIO (10-20); Calcium,Total 9.6 mg/dL (8.5-10.1); Chloride 113 mmol/L (98-107); Creatinine, Serum 1.26 mg/dL (0.70-1.30); EST Glomerular Filtration Rate 58 mL/min (>60); Est Glom Filt Rate - Afr Amer 70 mL/min (>60); Estimated Creatinine Clearance 38.86 ml/min; Globulin 3.3 g/dL (2.2-4.2); Glucose 142 mg/dL (74-106); Magnesium 2.4 mg/dL (1.6-2.6); Phosphorus 2.8 mg/dL (2.5-4.9); Potassium 3.9 mmol/L (3.5-5.1); Protein, Total 5.7 g/dL (6.4-8.2); Sodium Level 143 mmol/L (136-145)
[2022-09-04] MEDS: dexAMETHasone 4 MG Tablet 6 MG PO (08:54)
[2022-09-04] MEDS: amLODIPine 10 MG Tablet PO (08:55)
[2022-09-04] MEDS: Clopidogrel Bisulfate 75 MG Tablet PO (08:55)
[2022-09-04] MEDS: Atorvastatin Calcium 40 MG Tablet PO (08:55)
[2022-09-04] MEDS: Aspirin 81 MG TAB.CHEW PO (08:55)
[2022-09-04] MEDS: Pantoprazole Sodium 40 MG Tablet PO (08:55)
[2022-09-04] MEDS: Enoxaparin 30 MG/0.3 ML Syringe SC (08:56)
[2022-09-04] MEDS: Tamsulosin HCl 0.4 MG Capsule 0.8 MG PO (08:56)
--- NOTE | 2022-09-04 10:03 | CASEMGMT ---
Pt grandson met with MARAH HOLLINGSWORTH outside of the room. He states pt has 2 brothers and one of them is pt DPOA. He states he spoke with pt today and pt wants him to be DPOA. He states pt brother has decided he is not interested in this d/t his age. Updated SW. Raza georges reports pt lives at [facility]. He checks on him weekly and gets his groceries and medications for pt. States pt has declined greatly in the last 6 mos. He states he discussed with pt and pt brothers that pt cannot return back to his current living facility and states pt is agreeable to SNF s/t. Pt has been to [facility] in the past and grandson was not pleased. Will discuss plan with pt.
--- NOTE | 2022-09-04 13:00 | CASEMGMT ---
Discharge Informatics Coordinator This web content writer sent referral to [facility] via [facility]. Val MATIAS Frame Sample And Pattern Supervisor
--- NOTE | 2022-09-04 13:05 | CASEMGMT ---
Social Work? SW in to meet with pt following update from RNDARRICK and that pt will need placement at nursing facility. SW introduced self and role at the hospital. Pt agreeable to discussing discharge planning, however pt appeared confused, taking long periods of time to answer simple questions. A list of SNF providers including quality and resource use data and consistent with the patient?s preferred geographic region, medical needs, and insurance network were provided from the [facility] Guide. Pt reviewed list but became agitated with IV making beeping noise and could not focus on discussion. Pt yelled at SW, stated not wanting to continue discussion. Just talk to Dave about it. Dave is pt grandson. SW also attempted to discussion AD with pt. Pt refused to discuss. LOLA called pt brother, Casa, who is assumed to be HCPOA. No answer. LOLA then called pt grandson Raza. Raza answered, reviewed SNF choices with SW from [facility] list and stated families first choice would be [facility] as pt has been at this facility previously. PLAN: SW, pending acceptance ? TERRI Parra?
--- NOTE | 2022-09-04 13:13 | CASEMGMT ---
Social Work? ? SW in to pt room to verify advance directives. Pt uable to discuss AD. Stated not sure what this means. Pt grandson, Raza Bone told RNCM that pt brother is HCPOA but currently does not want to continue as pt brother is advancing in age. SW attempted to discuss AD with pt to determine if a new HCPOA document needs completed. Pt did not want to discuss at this time as pt was agitated with medical devices in room beeping. ? TERRI Parra?
--- NOTE | 2022-09-04 13:17 | CASEMGMT ---
Discharge Geography Professor [facility] reached out. Patient has been accepted. Val MATIAS Emergency Room Physician Assistant
--- NOTE | 2022-09-04 14:19 | PCM.TXEXTCAR ---
Diet Diet Order/Speech Therapy: 08/31/22 23:25 Diet: Regular - General Food consistency:: Regular Liquid Consistency:: Regular/Thin Type of Dietary Supplement:: Ensure Compact Is pt able to select menu?: No Problem/Diagnosis (1) COVID-19: Status: Acute Code(s): U07.1 - COVID-19 (2) Bilateral leg pain: Status: Acute Code(s): M79.604 - Pain in right leg; M79.605 - Pain in left leg (3) Hypoxia: Status: Acute Code(s): R09.02 - Hypoxemia Plan Patient is an 82-year-old male admitted with increasing shortness of breath diagnosed with acute hypoxic respiratory failure secondary to COVID-19 pneumonia 1. Acute hypoxic respiratory failure ? Secondary to COVID-19 pneumonia. Patient was placed on supplemental oxygen via nasal cannula advanced to Airvo due to worsening respiratory status. Patient was started on remdesivir. Was also started on antibiotics in view of worsening leukocytosis -09/04/2022 Patient seen still remains significantly dyspneic at rest and remains on supplemental oxygen via Airvo 2. Acute metabolic encephalopathy ? Secondary to #1 plan is to treat underlying cause 3. BPH ? Patient is on tamsulosin did continue 4. Hypertension - Blood pressure controlled, home medications continued with dose adjustment as needed 5. Dyslipidemia -Patient is on statin therapy, continued at home dose 6. GERD ? Patient with PPI 7. DVT prophylaxis ? On enoxaparin Allergies/Procedures Done in Hospital Allergies No Known Allergies Allergy (Verified 08/31/22 17:58) Procedures: None Type of Care/Length of Stay Estimated LOS: Convalescent Care Less Than 30 days Type of Care Needed: Skilled Rehab Potential: Good Prognosis: Good Additional Orders/Day of Discharge Day of Discharge: 09/04/22 Dietary and Speech Recommendations Dietitian Recommendations/Changes: regular diet; will add ensure compact TID w/ meals for additional protein/calories if consumed. Discharge Plan Admission Admit Date/Time: 08/31/22 20:36 Attending Provider: Maynor Bose Primary Care Provider: Noah Oneil Consulting Providers: Mikey Berger ; Christian Ayala Discharge Orders/Prescriptions Prescriptions: New ipratropium-albuterol 0.5 mg-3 mg(2.5 mg base)/3 mL Solution For Nebulization 3 ml inhalation Q4HWA.RT Qty: 0 0RF sennosides-docusate sodium [Stool Softener-Stimulant Laxat] 8.6-50 mg Tablet 2 tab PO BID PRN PRN (Reason: Constipation) Qty: 0 0RF melatonin 3 mg Tablet 3 mg PO QHS PRN PRN (Reason: Insomnia) Qty: 0 0RF levofloxacin 750 mg Tablet 750 mg PO Q48@0600 Qty: 0 0RF enoxaparin 30 mg/0.3 mL Syringe 30 mg subcut BID Qty: 0 0RF dexamethasone 6 mg tablet 6 mg PO DAILY Qty: 6 0RF Continued atorvastatin 40 mg tablet 40 mg PO DAILY Label Comments: take 1 tablet by mouth once daily clopidogrel 75 mg tablet 75 mg PO DAILY Label Comments: take 1 tablet by mouth once daily tamsulosin 0.4 mg capsule 0.8 mg PO DAILY Label Comments: take 2 capsules by mouth once daily amlodipine 10 mg tablet 10 mg PO DAILY Label Comments: take 1 tablet by mouth once daily pantoprazole 40 mg tablet,delayed release (DR/EC) 40 mg PO DAILY Label Comments: take 1 tablet by mouth once daily Referrals / Follow Up: Noah Oneil MD [Primary Care Provider] - Disposition Disposition (needs filled in before D/C Order can be placed): Senior Living Facility
--- NOTE | 2022-09-04 14:25 | PCM.DC.SUM ---
Providers Date of Admission: 08/31/22 Date of Discharge: 09/04/22 Primary Care Physician: Dr. Noah Oneil MD Reason For Visit: COVID 19 INFECTION, HYPOXIA, DEBILITY Diagnosis Discharge Diagnosis (1) COVID-19: Status: Acute Code(s): U07.1 - COVID-19 (2) Bilateral leg pain: Status: Acute Code(s): M79.604 - Pain in right leg; M79.605 - Pain in left leg (3) Hypoxia: Status: Acute Code(s): R09.02 - Hypoxemia Plan Patient is an 82-year-old male admitted with increasing shortness of breath diagnosed with acute hypoxic respiratory failure secondary to COVID-19 pneumonia 1. Acute hypoxic respiratory failure ? Secondary to COVID-19 pneumonia. Patient was placed on supplemental oxygen via nasal cannula advanced to Airvo due to worsening respiratory status. Patient was started on remdesivir. Was also started on antibiotics in view of worsening leukocytosis -09/04/2022 Patient seen still remains significantly dyspneic at rest and remains on supplemental oxygen via Airvo 2. Acute metabolic encephalopathy ? Secondary to #1 plan is to treat underlying cause 3. BPH ? Patient is on tamsulosin did continue 4. Hypertension - Blood pressure controlled, home medications continued with dose adjustment as needed 5. Dyslipidemia -Patient is on statin therapy, continued at home dose 6. GERD ? Patient with PPI 7. DVT prophylaxis ? On enoxaparin Medications at Discharge Home Medications amlodipine 10 mg tablet 10 mg PO DAILY bp 09/03/22 atorvastatin 40 mg tablet 40 mg PO DAILY cholesterol 09/03/22 clopidogrel 75 mg tablet 75 mg PO DAILY blood thinner 09/03/22 pantoprazole 40 mg tablet,delayed release 40 mg PO DAILY GERD 09/03/22 tamsulosin 0.4 mg capsule 0.8 mg PO DAILY urination 09/03/22 dexamethasone 6 mg tablet 6 mg PO DAILY #6 tabs 09/04/22 enoxaparin 30 mg/0.3 mL subcutaneous syringe 30 mg (0.3 mL) subcut BID #0 mL 09/04/22 ipratropium 0.5 mg-albuterol 3 mg (2.5 mg base)/3 mL nebulization soln 3 ml inhalation Q4HWA.RT #0 mL 09/04/22 levofloxacin 750 mg tablet 750 mg PO Q48@0600 #0 tabs 09/04/22 melatonin 3 mg tablet 3 mg PO QHS PRN PRN Insomnia #0 tabs 09/04/22 sennosides 8.6 mg-docusate sodium 50 mg tablet (Stool Softener-Stimulant Laxative) 2 tab PO BID PRN PRN Constipation #0 tabs 09/04/22 Hospital Course Summary of Care Provided Minutes Spent on Discharge: 35 Physical Exam Narrative GENERAL: On supplemental oxygen HEENT: Atraumatic; normocephalic EYES; Anicteric, Normal Conjunctiva NECK; supple, normal thyroid, RESPIRATORY: Diminished to auscultation CARDIOVASCULAR: Regular S1 S2, GI: soft, normoactive bowel sounds, : No Renal angle tenderness; EXTREMITIES: No edema, no clubbing, MUSCULOSKELETAL: no muscle wasting NEURO: Awake; no lateralizing signs. SKIN: No Rash PSYCH; Flat affect Weight / BMI Weight Weight: 60.781 kg Body Mass Index (BMI) 20.9 ABG / Lab / Microbiology Data Result Diagrams: 09/04/22 06:35 09/04/22 06:35 Laboratory: Laboratory Results - last 24 hr 09/04/22 06:35: WBC 13.9 H, RBC 4.76, Hgb 13.5, Hct 40.8, MCV 85.7, MCH 28.4, MCHC 33.1, RDW Std Deviation 46.2 H, RDW Coeff of Rosalie 14.6, Plt Count 374, MPV 9.7, Immature Gran % (Auto) 1.400 H, Neut % (Auto) 86.9 H, Lymph % (Auto) 6.8 L, Loving % (Auto) 4.8, Eos % (Auto) 0.0, Baso % (Auto) 0.1, Absolute Neuts (auto) 12.0 H, Absolute Lymphs (auto) 0.94, Nucleated RBC % 0 09/04/22 06:35: Sodium 143, Potassium 3.9, Chloride 113 H, Carbon Dioxide 23.0, Anion Gap 7, BUN 41 H, Creatinine 1.26, Estim Creat Clear Calc 38.86, Est GFR (MDRD) Af Amer 70, Est GFR (MDRD) Non-Af 58 L, BUN/Creatinine Ratio 32.5 H, Glucose 142 H, Calcium 9.6, Phosphorus 2.8, Magnesium 2.4, Total Bilirubin 0.50, AST 29, ALT 52, Alkaline Phosphatase 89, Total Protein 5.7 L, Albumin 2.4 L, Globulin 3.3, Albumin/Globulin Ratio 0.7 L Microbiology: Microbiology 08/31/22 18:45 Nasal Secretion SARS-CoV-2 & FLU Antigen (Rapid) - Final SARS-CoV-2 (COVID 19) D/C Instructions Discharge Diet: No restrictions Discharge Activity: Return to Normal Activity Call your doctor if you observe: Fever of 101 or Higher, Shortness of breath, Fainting spells and Chest pain Meaningful Use Info Meaningful Use Diagnoses (Choose all that apply): None applicable Discharge Plan Admission Admit Date/Time: 08/31/22 20:36 Attending Provider: Maynor Bose Primary Care Provider: Noah Oneil Consulting Providers: Mikey Berger ; Christian Ayala Discharge Orders/Prescriptions Prescriptions: New ipratropium-albuterol 0.5 mg-3 mg(2.5 mg base)/3 mL Solution For Nebulization 3 ml inhalation Q4HWA.RT Qty: 0 0RF sennosides-docusate sodium [Stool Softener-Stimulant Laxat] 8.6-50 mg Tablet 2 tab PO BID PRN PRN (Reason: Constipation) Qty: 0 0RF melatonin 3 mg Tablet 3 mg PO QHS PRN PRN (Reason: Insomnia) Qty: 0 0RF levofloxacin 750 mg Tablet 750 mg PO Q48@0600 Qty: 0 0RF enoxaparin 30 mg/0.3 mL Syringe 30 mg subcut BID Qty: 0 0RF dexamethasone 6 mg tablet 6 mg PO DAILY Qty: 6 0RF Continued atorvastatin 40 mg tablet 40 mg PO DAILY Label Comments: take 1 tablet by mouth once daily clopidogrel 75 mg tablet 75 mg PO DAILY Label Comments: take 1 tablet by mouth once daily tamsulosin 0.4 mg capsule 0.8 mg PO DAILY Label Comments: take 2 capsules by mouth once daily amlodipine 10 mg tablet 10 mg PO DAILY Label Comments: take 1 tablet by mouth once daily pantoprazole 40 mg tablet,delayed release (DR/EC) 40 mg PO DAILY Label Comments: take 1 tablet by mouth once daily Referrals / Follow Up: Noah Oneil MD [Primary Care Provider] - Disposition Disposition (needs filled in before D/C Order can be placed): Longterm Facility Charges/Coding Visit Charges Inpatient E&M: 98816 Disch Hosp
--- NOTE | 2022-09-04 15:28 | CASEMGMT ---
Social Work? LOLA notified pt and pt family (kenny Person) of discharge to [facility] today. LOLA completed 7000 convalescent form in [facility]. Set up wheelchair transportation through [facility] for 4:30pm. LOLA faxed all discharge orders to [facility] via [facility] and notified of discharge time. LOLA notified pt nurse of transport time. LOLA made copies of discharge orders and placed on pt chart. Sent original orders in envelope with pt upon discharge.?? Disposition: [facility], skilled, convalescent, level of care? TERRI Parra?
--- NOTE | 2022-09-04 16:06 | PHA.DC.MR ---
Pharmacy Service has performed discharge medication reconciliation for this patient. The patient's discharge medication list was reviewed for discrepancies and discrepancies were resolved. Home Medications amlodipine 10 mg tablet 10 mg PO DAILY bp 09/03/22 atorvastatin 40 mg tablet 40 mg PO DAILY cholesterol 09/03/22 clopidogrel 75 mg tablet 75 mg PO DAILY blood thinner 09/03/22 pantoprazole 40 mg tablet,delayed release 40 mg PO DAILY GERD 09/03/22 tamsulosin 0.4 mg capsule 0.8 mg PO DAILY urination 09/03/22 dexamethasone 6 mg tablet 6 mg PO DAILY #6 tabs 09/04/22 enoxaparin 30 mg/0.3 mL subcutaneous syringe 30 mg (0.3 mL) subcut BID #0 mL 09/04/22 ipratropium 0.5 mg-albuterol 3 mg (2.5 mg base)/3 mL nebulization soln 3 ml inhalation Q4HWA.RT #0 mL 09/04/22 levofloxacin 750 mg tablet 750 mg PO Q48@0600 #0 tabs 09/04/22 melatonin 3 mg tablet 3 mg PO QHS PRN PRN Insomnia #0 tabs 09/04/22 sennosides 8.6 mg-docusate sodium 50 mg tablet (Stool Softener-Stimulant Laxative) 2 tab PO BID PRN PRN Constipation #0 tabs 09/04/22
== END 2022-09-04 17:48 | disposition skilled nursing facility (03) | DRG 177 ==
LOC: ED 20:48 → MS3 22:21
PROVIDERS: Family Medicine; Admitting Provider Hospitalist; Emergency Provider Student in an Organized Health Care Education/Training Program; PCP Family Medicine; Visit Provider Internal Medicine
DX: U07.1 COVID-19 (principal); J96.01 Acute respiratory failure with hypoxia; J12.82 Pneumonia due to coronavirus disease 2019; G93.41 Metabolic encephalopathy; E78.5 Hyperlipidemia, unspecified; N18.9 Chronic kidney disease, unspecified; G93.89 Other specified disorders of brain; I12.9 Hypertensive chronic kidney disease with stage 1 through stage 4 chronic kidney disease, or unspecified chronic kidney disease; M79.605 Pain in left leg; K21.9 Gastro-esophageal reflux disease without esophagitis; M79.604 Pain in right leg; Z87.891 Personal history of nicotine dependence; Z60.2 Problems related to living alone; Z79.82 Long term (current) use of aspirin; Z86.73 Personal history of transient ischemic attack (TIA), and cerebral infarction without residual deficits; N40.0 Benign prostatic hyperplasia without lower urinary tract symptoms
CPT/HCPCS: 36415; 36600; 70450; 71045; 73521; 80048; 80053; 81001; 82306; 82550; 82803; 83735; 84100; 84484; 85025; 87428; 93005; 94002; 94640; 94660; 94762; 97110; 97116; 97162; 97166; 97530; 97535; 99251; 99285; J7050; A4216; G0463; J0248; J1940; J2405

== ENCOUNTER 2022-09-08 11:41 | Emergency (ER) | payer MEDICARE, OTHER, SELFPAY ==
[2022-09-08] VITALS (7 sets, daily range): BP systolic 96–115; BP diastolic 54–64; PULSE 62–79; RESP 16–17; TEMP 36.2; O2SAT 88–99
--- NOTE | 2022-09-08 12:27 | EKG12_ITS ---
Test Reason : FALL Blood Pressure : / mmHG Vent. Rate : 066 BPM Atrial Rate : 066 BPM P-R Int : 168 ms QRS Dur : 078 ms QT Int : 440 ms P-R-T Axes : 064 -24 041 degrees QTc Int : 461 ms Normal sinus rhythm Inferior infarct , age undetermined Abnormal ECG Confirmed by JUANIS YARBROUGH, LILIAN ([id number]), business editor WHITNEY EMERSON ([id number]) on 09/10/2022 12:44:52 PM Referred By: RAMESH Confirmed By:LILIAN OLIVAREZ MD
--- NOTE | 2022-09-08 12:27 | CT_ITS ---
EXAM: CT HEAD WITHOUT INTRAVENOUS CONTRAST CLINICAL INDICATION: head injury TECHNIQUE: Multiple axial images were obtained of the head without intravenous contrast. This CT exam was performed using one or more of the following dose reduction techniques: automated exposure control, adjustment of the mA and/or kV according to patient size, and/or use of iterative reconstruction technique. This report was created using [employer] report generation technology. COMPARISON: None. FINDINGS: BRAIN AND EXTRA-AXIAL SPACES: Areas of diminished white matter density noted within both cerebral hemispheres suggestive of chronic microvascular change. Chronic left frontal and parietal cortical infarcts noted. Chronic focal infarct also noted within the right so radiata. Prominence of the cortical sulci and ventricles related to volume loss change. No intra- or extra-axial hemorrhage. No intracranial mass or mass effect. Posterior fossa structures are unremarkable. Basal cisterns are patent. BONES/JOINTS: Normal. No discrete lytic or blastic abnormalities. SINUSES: Mucosal thickening and small amount of fluid noted within the paranasal sinuses. MASTOID AIR CELLS: Normal. Clear. ORBITS: Visualized globes, extraocular muscles, optic nerves and retrobulbar fat appear unremarkable. CT/Brain/Head without Contrast IMPRESSION: 1. No acute intracranial abnormality. 2. Chronic microvascular changes. 3. Mild paranasal sinusitis. Electronically Signed: Miles Whyte MD at 13:29 EST ,
--- NOTE | 2022-09-08 12:29 | EX.ED.DYSGE1 ---
HPI History of Present Illness Chief Complaint: Lower Extremity Injury Narrative Narrative: 82-year-old male presenting with groin pain and tailbone pain. Patient previously admitted August 31, 2022 through September 04, 2022 for hypoxic diarrhea secondary to COVID 19. Patient was discharged home on 4 L of oxygen. Patient's family states he had a fall 2 days ago in which he struck his head and hurt his buttocks. At baseline he supposed to walk with a walker. The fall was unwitnessed. He is on Plavix but is not on any other anticoagulation. He was previously on Lovenox for his last hospital stay. Patient's family states they found no signs of trauma to the head. Patient is a poor informant secondary to history of strokes. His family states that they had to turn up his oxygen at the detention to 9 L. [facility] Medical History COVID Stroke/cerebrovascular accident Home Medications amlodipine 10 mg tablet 10 mg PO DAILY bp 09/03/22 [History Last Taken Unknown] atorvastatin 40 mg tablet 40 mg PO DAILY cholesterol 09/03/22 [History Last Taken Unknown] clopidogrel 75 mg tablet 75 mg PO DAILY blood thinner 09/03/22 [History Last Taken Unknown] pantoprazole 40 mg tablet,delayed release 40 mg PO DAILY GERD 09/03/22 [History Last Taken Unknown] tamsulosin 0.4 mg capsule 0.8 mg PO DAILY urination 09/03/22 [History Last Taken Unknown] dexamethasone 6 mg tablet 6 mg PO DAILY #6 tabs 09/04/22 [Rx Last Taken Unknown] enoxaparin 30 mg/0.3 mL subcutaneous syringe 30 mg (0.3 mL) subcut BID #0 mL 09/04/22 [Rx Last Taken Unknown] ipratropium 0.5 mg-albuterol 3 mg (2.5 mg base)/3 mL nebulization soln 3 ml inhalation Q4HWA.RT #0 mL 09/04/22 [Rx Last Taken Unknown] levofloxacin 750 mg tablet 750 mg PO Q48@0600 #0 tabs 09/04/22 [Rx Last Taken Unknown] melatonin 3 mg tablet 3 mg PO QHS PRN PRN Insomnia #0 tabs 09/04/22 [Rx Last Taken Unknown] sennosides 8.6 mg-docusate sodium 50 mg tablet (Stool Softener-Stimulant Laxative) 2 tab PO BID PRN PRN Constipation #0 tabs 09/04/22 [Rx Last Taken Unknown] clopidogrel 75 mg tablet 75 mg PO DAILY 09/08/22 [History Last Taken Unknown] Allergy/AdvReac Type Severity Reaction Status Date / Time No Known Allergies Allergy Verified 09/08/22 11:50 Family History Other Cancer Heart disease Social History Smoking Status: Former smoker ROS ROS ED Constitutional Constitutional ED: Denies chills or weight loss Eyes Eyes: Denies blurry vision or change in vision ENT ENT ED: Denies rhinorrhea or sore throat Cardiovascular Cardiovascular: Denies chest pain or palpitations Respiratory/Chest Respiratory/Chest: Reports dyspnea Gastrointestinal Gastrointestinal: Denies abdominal pain or constipation Genitourinary Genitourinary ED: Denies dysuria or hematuria Musculoskeletal Musculoskeletal: Reports other Details: Pain in the tailbone ; Denies arthralgias Integumentary Denies abscess or Abrasions Neurologic Neurologic: Denies headache(s) or paresthesias EXAM Physical Exam Const Vital Signs: 09/08/22 11:43 09/08/22 11:50 09/08/22 11:57 Temperature 97.1 F L Temperature Source Temporal Pulse Rate 79 Respiratory Rate 16 Blood Pressure 115/63 Blood Pressure Mean 80 Pulse Ox 88 94 88 Oxygen Delivery Method Room Air Nasal Cannula Nasal Cannula Oxygen Flow Rate (L/min) 4 4 09/08/22 11:58 09/08/22 13:04 09/08/22 13:58 Temperature Temperature Source Pulse Rate Respiratory Rate Blood Pressure 114/64 Blood Pressure Mean 80 Pulse Ox 89 Oxygen Delivery Method Nasal Cannula Nasal Cannula Oxygen Flow Rate (L/min) 5 6 09/08/22 15:11 Temperature Temperature Source Pulse Rate 71 Respiratory Rate 17 Blood Pressure 96/54 L Blood Pressure Mean 68 Pulse Ox 99 Oxygen Delivery Method Room Air Oxygen Flow Rate (L/min) Positive well nourished HEENT Reports moist mucous membranes Eyes PERRL and EOMs intact bilaterally Neck no lymphadenopathy Chest Wall inspection of chest normal Resp normal respiratory effort Auscultation: rales bilateral Cardio regular rate and regular rhythm GI normal to inspection, nondistended, normoactive bowel sounds Extremity Extremity Narrative: Tenderness to palpation over the proximal thigh regions. Pelvis appears stable. There is tenderness over the coccyx. Patient able to flex his legs up off the bed without difficulty but complains of pain. No obvious deformities. No rashes. Neuro CN's II-XII intact bilaterally Neuro Narrative: Appears confused Sensorium / Orientation: alert Psych Psych Narrative: Appears confused MDM MDM MDM Narrative Medical decision making narrative: Patient seen and evaluated out of concern for history of fall a couple days ago. I did obtain a CT of the brain which is negative for acute intracranial pathology. X-ray of the pelvis on my interpretation shows no acute fracture. CBC shows slight leukocytosis of 13.6 but this is where he was when he was in the hospital. Hemoglobin macular stable. Renal function at baseline. Electrolytes within normal limits. High-sensitivity troponin is 14. D-dimer age-adjusted is negative. EKG normal sinus rhythm with a ventricular rate of 66 bpm without sign of ischemic change or dysrhythmia on my interpretation. Chest x-ray on my interpretation shows no acute cardiopulmonary process. Radiology interpreted this and agrees. I did address the fact that the family is concerned that his oxygen is low at the detention. I spoke with the hospitalist who stated he was discharged home on 4 L but can go as high as 6 L via nasal cannula. He has not required any more than that here. Although he has some low pulse ox readings he does have a pulse ox of 99% on 6 L and he is well-appearing with a normal work-up. I discussed this with Dr. Garvey who is on-call for Dr. Tapia and he stated that from a respiratory standpoint etiology is a 6 L he is okay to go back to the facility. I also addressed the patient's chronic leg pain. I did not feel comfortable giving him narcotics for home. He cannot take NSAIDs because he is on Plavix. He is only been getting Tylenol for his pain. His family request something stronger. Dr. Garvey request that when he gets back to the facility with his family to have the nurse that is taking care of him call him go over the chart and we will come up with something to give him for pain such as gabapentin most likely. Patient's family was minimal to this. Impression: 1. Fall 2. Closed head injury 3. Chronic leg pain 4. History of COVID-19 Lab Data Attestation: I reviewed the patient's lab results. Labs: Laboratory Results - last 24 hr 09/08/22 09/08/22 09/08/22 12:55 12:55 12:55 WBC 13.6 H RBC 5.09 Hgb 14.5 Hct 44.6 MCV 87.6 MCH 28.5 MCHC 32.5 RDW Std Deviation 47.8 H RDW Coeff of Rosalie 14.9 H Plt Count 376 MPV 9.6 Immature Gran % (Auto) 2.100 H Neut % (Auto) 81.2 H Lymph % (Auto) 7.9 L [place] % (Auto) 7.8 Eos % (Auto) 0.6 Baso % (Auto) 0.4 Absolute Neuts (auto) 11.0 H Absolute Lymphs (auto) 1.07 Nucleated RBC % 0 D-Dimer Quant (PE/DVT) 0.50 H Sodium 142 Potassium 4.2 Chloride 111 H Carbon Dioxide 26.0 Anion Gap 5 BUN 31 H Creatinine 1.33 H Estim Creat Clear Calc 38.44 Est GFR (MDRD) Af Amer 66 Est GFR (MDRD) Non-Af 55 L BUN/Creatinine Ratio 23.3 H Glucose 88 Calcium 9.5 Troponin I High Sens 14 Radiography Diagnostic Testing: Clinical Impression(s) from Imaging Studies Brain CT 09/08/22 12:27 IMPRESSION: 1. No acute intracranial abnormality. 2. Chronic microvascular changes. 3. Mild paranasal sinusitis. Electronically Signed: Miles Whyte MD at 13:29 EST Reading Location ID and State: [id number] Tel , Service support , Chest X-Ray 09/08/22 13:08 IMPRESSION: No acute cardiopulmonary abnormality. Pulmonary emphysema. No interval change. Electronically Signed: Miles Whyte MD at 13:34 EST , Pelvis X-Ray 09/08/22 13:08 IMPRESSION: No evidence of displaced pelvic fracture. Electronically Signed: Miles Whyte MD at 13:35 EST , Discharge Plan Triage Chief Complaint: Lower Extremity Injury ED Provider: Neri Oh Dx/Rx/DC Orders Instructions: Bruises (Contusions), ED Head Injury (Adult), ED Fall Prevention Prescriptions: No Action atorvastatin 40 mg tablet 40 mg PO DAILY Label Comments: take 1 tablet by mouth once daily clopidogrel 75 mg tablet 75 mg PO DAILY Label Comments: take 1 tablet by mouth once daily tamsulosin 0.4 mg capsule 0.8 mg PO DAILY Label Comments: take 2 capsules by mouth once daily amlodipine 10 mg tablet 10 mg PO DAILY Label Comments: take 1 tablet by mouth once daily pantoprazole 40 mg tablet,delayed release (DR/EC) 40 mg PO DAILY Label Comments: take 1 tablet by mouth once daily ipratropium-albuterol 0.5 mg-3 mg(2.5 mg base)/3 mL Solution For Nebulization 3 ml inhalation Q4HWA.RT Qty: 0 0RF sennosides-docusate sodium [Stool Softener-Stimulant Laxat] 8.6-50 mg Tablet 2 tab PO BID PRN PRN (Reason: Constipation) Qty: 0 0RF melatonin 3 mg Tablet 3 mg PO QHS PRN PRN (Reason: Insomnia) Qty: 0 0RF levofloxacin 750 mg Tablet 750 mg PO Q48@0600 Qty: 0 0RF enoxaparin 30 mg/0.3 mL Syringe 30 mg subcut BID Qty: 0 0RF dexamethasone 6 mg tablet 6 mg PO DAILY Qty: 6 0RF clopidogrel 75 mg tablet 75 mg PO DAILY Primary Care Provider: Noah Oneil Referrals: Noah Oneil MD [Primary Care Provider] - Disposition Disposition: Home, Self Care
--- NOTE | 2022-09-08 13:08 | RAD_ITS ---
EXAM: XR CHEST, 1 VIEW CLINICAL INDICATION: chest pain TECHNIQUE: Frontal view of the chest. This report was created using [employer] report generation technology. COMPARISON: XR Chest dated 08/31/2022 FINDINGS: LUNGS AND PLEURAL SPACES: Emphysematous changes of lungs again noted. No pulmonary consolidation. No pneumothorax. No effusion. HEART: Normal heart size. MEDIASTINUM: No mediastinal or hilar mass. BONES/JOINTS: No acute abnormality. SOFT TISSUES: Normal. RAD/Chest 1 View (Portable) IMPRESSION: No acute cardiopulmonary abnormality. Pulmonary emphysema. No interval change. Electronically Signed: Miles Whyte MD at 13:34 EST ,
--- NOTE | 2022-09-08 13:08 | RAD_ITS ---
EXAM: XR PELVIS, 1 OR 2 VIEWS CLINICAL INDICATION: pain TECHNIQUE: Frontal view of the pelvis. This report was created using [employer] report generation technology. COMPARISON: None. FINDINGS: BONES/JOINTS: No acute abnormality. SOFT TISSUES: Normal. No soft tissue swelling or gas. RAD/Pelvis 1 or 2 Views IMPRESSION: No evidence of displaced pelvic fracture. Electronically Signed: Miles Whyte MD at 13:35 EST ,
[2022-09-08 13:10] LABS: Absolute Lymphocyte Count 1.07 X10^3/uL (0.83-4.51); Basophil# 0.05 X10^3/uL; Basophil% 0.4 % (0-1); Eosinophil# 0.08 X10^3/uL; Eosinophils% 0.6 % (0-5); Hematocrit 44.6 % (40-54); Hemoglobin 14.5 g/dL (13.0-16.5); Lymphocyte # 1.07 X10^3/ul (0.83-4.51); Lymphocyte % 7.9 % (19-41); Mean Corp Hgb Conc 32.5 g/dL (32-36); Mean Corpuscular Hgb 28.5 pg (27.0-32.0); Mean Corpuscular Volume 87.6 fL (80-94); Mean Platelet Vol. 9.6 fl (6.2-12.0); Monocyte# 1.06 X10^3/uL; Monocyte% 7.8 % (0-10); NRBC Flagged by Analyzer 0 % (0-5); Neutrophil # 11.04 X10^3/uL (2.7-7.7); Neutrophil % 81.2 % (47-70); Platelet Count 376 K/mm3 (150-450); RBC Distribution Width CV 14.9 % (11.6-14.6); RBC Distribution Width SD 47.8 fl (35.1-43.9); Red Blood Count 5.09 M/mm3 (4.6-6.2); White Blood Count 13.6 K/mm3 (4.4-11.0)
[2022-09-08 13:39] LABS: Anion Gap 5 (5-15); BUN 31 mg/dL (7-18); BUN/Creat Ratio 23.3 RATIO (10-20); Calcium,Total 9.5 mg/dL (8.5-10.1); Chloride 111 mmol/L (98-107); Creatinine, Serum 1.33 mg/dL (0.70-1.30); EST Glomerular Filtration Rate 55 mL/min (>60); Est Glom Filt Rate - Afr Amer 66 mL/min (>60); Estimated Creatinine Clearance 38.44 ml/min; Glucose 88 mg/dL (74-106); Potassium 4.2 mmol/L (3.5-5.1); Sodium Level 142 mmol/L (136-145); Troponin-I HS 14 pg/mL (3.0-78.0)
[2022-09-08] MEDS: Ketorolac 15 MG/ML Vial IV (14:05)
--- NOTE | 2022-09-08 16:45 | NURSING ---
[facility] ETA 5:05 PM
== END 2022-09-08 17:14 | disposition home or self-care (01) ==
PROVIDERS: Emergency Provider Student in an Organized Health Care Education/Training Program; PCP Family Medicine; Visit Provider Student in an Organized Health Care Education/Training Program
DX: S09.90XA Unspecified injury of head, initial encounter (principal); Z87.891 Personal history of nicotine dependence; M79.606 Pain in leg, unspecified; G89.29 Other chronic pain; Z86.16 Personal history of COVID-19; W19.XXXA Unspecified fall, initial encounter
CPT/HCPCS: 70450; 71045; 72170; 80048; 84484; 85025; 85379; 93005; 99285; A4216

== ENCOUNTER 2022-09-12 14:37 | Emergency (ER) | payer MEDICARE, OTHER, SELFPAY ==
[2022-09-12] VITALS (9 sets, daily range): BP systolic 92–110; BP diastolic 55–60; PULSE 71–80; RESP 14–22; TEMP 36.4; O2SAT 90–96; BMI 19.5
--- NOTE | 2022-09-12 14:47 | CT_ITS ---
STUDY: CTA HEAD AND NECK WITH CONTRAST REASON FOR EXAM: Male, 82 years old. Neuro deficit, acute, stroke suspected RADIATION DOSAGE (If Supplied By Facility): CTDIvol = ( 21.66 ) mGy, DLP = ( 531.59 ) mGycm TECHNIQUE: CT angiography was performed with a multi-detector CT scanner. Data acquisition was obtained from the skull base through the vertex following intravenous administration of IV 100mL [id number]-[id number]. MIP images were reconstructed from the axial data set. Post-processing of the angiographic images was performed, with multiplanar reformation and 3D reconstruction. Individualized dose optimization techniques were used for this CT. COMPARISON: No relevant priors. FINDINGS: Normal bilateral petrous carotid arteries. There is calcified plaque formation of the right cavernous carotid artery, without a cross-sectional luminal stenosis. There is calcified plaque formation of the left cavernous carotid artery, without a cross-sectional luminal stenosis. Normal right A1 segments of the anterior cerebral artery. Normal left A1 segments of the anterior cerebral artery. Normal intact anterior communicating artery (ACOM). Normal bilateral A2 segments of the anterior cerebral arteries. Normal right M1 and M2 segments of the middle cerebral arteries, with a normal M1 bifurcation. Normal left M1 and M2 segments of the middle cerebral arteries, with a normal M1 bifurcation. Normal right posterior communicating artery (PCOM). Normal left posterior communicating artery (PCOM). Normal bilateral vertebral arteries. Normal basilar artery with a normal basilar bifurcation. The visualized bilateral superior cerebellar (SCA) arteries are normal. Normal bilateral P1, P2 and visualized P3 segments of the posterior cerebral arteries. There is no demonstrated aneurysm of the [place]. AORTIC ARCH: There is atherosclerotic calcific plaque formation of the aortic arch and great vessels arising from the aortic arch, without a hemodynamically significant stenosis. There is a normal origin of the brachiocephalic, left common carotid, and left subclavian arteries. Calcific plaque at the origin of the left subclavian artery and right brachiocephalic artery. RIGHT CAROTID ARTERIES: Normal right common carotid artery (CCA). Normal right common carotid bulb. There is moderate atherosclerotic plaque formation of the origin of the right internal carotid artery with an estimated stenosis of 50-69% stenosis. Normal visualized cervical portion of the right internal carotid artery. Normal origin of the right external carotid artery (ECA). LEFT CAROTID ARTERIES: Normal left common carotid artery (CCA). Normal left common carotid bulb. There is extensive atherosclerotic plaque formation of the origin of the left internal carotid artery with an estimated stenosis of greater than 70%. Normal visualized cervical portion of the left internal carotid artery. Normal origin of the left external carotid artery (ECA). VERTEBRAL ARTERIES: There is enhancement within the bilateral vertebral arteries with a small right vertebral artery, and a dominant left vertebral artery. CT/STROKE CTA Head AND Neck W/Con IMPRESSION: Atherosclerotic plaque formation at the origin of the right internal carotid artery causing between 50 and 69% stenosis. Calcific plaques at the origin of the left internal carotid artery causing greater than 70% narrowing. Small right vertebral artery. N.B. : The above Results were Read Back by Avery Torre MD to Gautam Mclaughlin and understanding confirmed on 09/12/2022 15:12:04 (ET). Electronically Signed: Avery Torre MD at 15:13 EST ,
--- NOTE | 2022-09-12 14:47 | EKG12_ITS ---
Test Reason : POSS STROKE Blood Pressure : / mmHG Vent. Rate : 080 BPM Atrial Rate : 080 BPM P-R Int : 176 ms QRS Dur : 078 ms QT Int : 416 ms P-R-T Axes : 047 -32 039 degrees QTc Int : 479 ms Normal sinus rhythm Left axis deviation Low voltage QRS (Limb Leads) Inferior infarct , age undetermined Nonspecific ST and T wave abnormality Abnormal ECG Confirmed by PRETTY YARBROUGH, MARTELL ([id number]), scientific publications editor WHITNEY EMERSON ([id number]) on 09/13/2022 8:30:49 AM Referred By: PEDRO Confirmed By:MARTELL OLSEN MD
--- NOTE | 2022-09-12 14:47 | CT_ITS ---
STUDY: CT HEAD STROKE PROTOCOL W/O CONTRAST INJECTION REASON FOR EXAM: Male, 82 years old. Neuro deficit, acute, stroke suspected RADIATION DOSAGE (If Supplied By Facility): CTDIvol = ( 44.99 ) mGy, DLP = ( a 46.73 ) mGycm TECHNIQUE: Transaxial CT imaging of the brain was performed without administration of intravenous contrast material. Individualized dose optimization techniques were used for this CT. COMPARISON: Comparison is made with prior examination dated 09/08/2022. FINDINGS: Normal soft tissue structures. Normal calvarium. There is mild cerebral atrophy with widening of the extra-axial spaces and ventricular dilatation. There are areas of decreased attenuation within the white matter tracts of the supratentorial brain, consistent with microvascular disease changes. Stable lacunar infarct in the body of the right caudate nucleus. Stable encephalomalacia in the posterior aspect of the right parietal lobe. Normal brainstem. Normal cerebellum. There is no intracranial hemorrhage. There are no findings of an acute ischemic infarction. Partial opacification of the ethmoid sinuses as well as the sphenoid sinus and maxillary sinuses ASPECT score: 9 CT/STROKE Brain/Head without Cont IMPRESSION: Chronic involutional changes of the brain. Stable examination. N.B. : The above Results were Read Back by Avery Torre MD to Dr Pepper MD, and understanding confirmed on 09/12/2022 15:08:26 (ET). Electronically Signed: Avery Torre MD at 15:09 EST ,
--- NOTE | 2022-09-12 14:48 | EDS_ITS ---
HPI History of Present Illness Chief Complaint: Neuro S/Sx Detail of Chief Complaint: Slurred speech and facial droop Informant: patient and EMS Narrative Narrative: [facility] with concern for stroke. Patient states he noticed slurred speech when he woke up this morning. He is not sure if he woke up this way. Staff at [facility] apparently noted the facial droop and slurred speech around 7 AM. Patient has history of strokes. He is on enoxaparin. Patient denies headache or recent fall. [facility] Medical History (Updated 09/12/22 @ 15:[address] Gautam Mclaughlin, DO) Benign prostatic hyperplasia without lower urinary tract symptoms COVID Hypercholesteremia Stroke/cerebrovascular accident Home Medications amlodipine 10 mg tablet 10 mg PO DAILY bp 09/03/22 [History Last Taken Unknown] atorvastatin 40 mg tablet 40 mg PO DAILY cholesterol 09/03/22 [History Last Taken Unknown] clopidogrel 75 mg tablet 75 mg PO DAILY blood thinner 09/03/22 [History Last Taken Unknown] pantoprazole 40 mg tablet,delayed release 40 mg PO DAILY GERD 09/03/22 [History Last Taken Unknown] tamsulosin 0.4 mg capsule 0.8 mg PO DAILY urination 09/03/22 [History Last Taken Unknown] dexamethasone 6 mg tablet 6 mg PO DAILY #6 tabs 09/04/22 [Rx Last Taken Unknown] enoxaparin 30 mg/0.3 mL subcutaneous syringe 30 mg (0.3 mL) subcut BID #0 mL 09/04/22 [Rx Last Taken Unknown] ipratropium 0.5 mg-albuterol 3 mg (2.5 mg base)/3 mL nebulization soln 3 ml inhalation Q4HWA.RT #0 mL 09/04/22 [Rx Last Taken Unknown] levofloxacin 750 mg tablet 750 mg PO Q48@0600 #0 tabs 09/04/22 [Rx Last Taken Unknown] melatonin 3 mg tablet 3 mg PO QHS PRN PRN Insomnia #0 tabs 09/04/22 [Rx Last Taken Unknown] sennosides 8.6 mg-docusate sodium 50 mg tablet (Stool Softener-Stimulant Laxative) 2 tab PO BID PRN PRN Constipation #0 tabs 09/04/22 [Rx Last Taken Unknown] clopidogrel 75 mg tablet 75 mg PO DAILY 09/08/22 [History Last Taken Unknown] Allergy/AdvReac Type Severity Reaction Status Date / Time No Known Allergies Allergy Verified 09/12/22 14:50 Family History Other Cancer Heart disease Social History Smoking Status: Former smoker EXAM Physical Exam Const Vital Signs: 09/12/22 14:48 09/12/22 14:55 09/12/22 15:00 Temperature 97.6 F L Temperature Source Oral Pulse Rate 80 79 Respiratory Rate 18 Blood Pressure 110/56 L 92/55 L 92/57 L Blood Pressure Mean 74 67 68 Pulse Ox 92 90 94 Oxygen Delivery Method Nasal Cannula Nasal Cannula Nasal Cannula Oxygen Flow Rate (L/min) 2 3 5 09/12/22 15:00 09/12/22 14:47 09/12/22 15:17 Temperature Temperature Source Pulse Rate 76 75 Respiratory Rate 19 H 22 H Blood Pressure 92/55 L 102/59 L Blood Pressure Mean 67 73 Pulse Ox 95 94 96 Oxygen Delivery Method Nasal Cannula Nasal Cannula Nasal Cannula Oxygen Flow Rate (L/min) 5 5 5 Positive well nourished and well developed General Appearance ED: well developed and NAD HEENT Reports TM's clear and moist mucous membranes normocephalic and atraumatic; Negative for trauma or tenderness Tympanic Membrane ED: Yes TM's clear Eyes PERRL and EOMs intact bilaterally General Eye ED: Negative for pale conjunctiva or scleral icterus Neck no lymphadenopathy, supple and no JVD General: Negative for tenderness Chest Wall inspection of chest normal and palpation of chest normal Chest: Negative for tenderness Resp normal respiratory effort and clear to auscultation bilaterally Effort and Inspection: Negative for respiratory distress or pain with movement Auscultation: Negative for rhonchi, wheezes or diminished lung sounds Cardio regular rate, regular rhythm, S1 normal heart sound, S2 normal heart sound and no murmurs Peripheral Pulses: pulses 2+ throughout GI normal to inspection, nondistended, normoactive bowel sounds, soft to palpation, non-tender, non-distended and no masses Back/Spine no CVA tenderness and no thoracic nor lumbar tenderness Extremity normal to inspection General Extremety ED: Negative for edema General Extremity: Negative for edema Neuro oriented x3, CN's II-XII intact bilaterally, no sensory deficits noted and gait normal Neuro Narrative: Slurred speech and left-sided facial droop. Patient does have some weakness of the right lower extremity compared to the left although its unclear if this is new when he does complain of pain in his right groin when he tries to move his leg. NIH stroke scale was a 7 Sensorium / Orientation: awake, alert, oriented to person, oriented to place and oriented to time Motor Exam: strength 5/5 throughout and strength abnormal Psych mental status grossly normal Skin no rashes or lesions noted and no wounds MDM MDM MDM Narrative Medical decision making narrative: Patient had a stroke team called prior to arrival in the emergency department. Patient immediately went to the CT scanner via EMS. Initial head CT showed nothing acute but did show old infarcts and chronic involutional changes. There was no hemorrhage. CTA of the head and neck obtained read by radiology as calcific plaques at origin of left internal carotid causing greater than 70% narrowing. Patient also had atherosclerotic plaque formation at the origin of the right internal carotid artery causing between 50 to 69% stenosis. Case discussed with neurologist at [facility] Dr. Damon who recommended transfer to their facility for evaluation for carotid endarterectomy potentially. Patient not a thrombolytic candidate as symptom onset now after discussing case with his son may have been last evening. Patient also on enoxaparin. Patient will be transferred to [facility] in stable condition. Lab Data Attestation: I reviewed the patient's lab results. Labs: Laboratory Results - last 24 hr 09/12/22 09/12/22 09/12/22 15:00 15:00 15:00 WBC 12.2 H RBC 4.77 Hgb 13.5 Hct 41.6 MCV 87.2 MCH 28.3 MCHC 32.5 RDW Std Deviation 47.2 H RDW Coeff of Rosalie 14.7 H Plt Count 406 MPV 9.2 Immature Gran % (Auto) 2.400 H Neut % (Auto) 79.4 H Lymph % (Auto) 8.[address] % (Auto) 8.5 Eos % (Auto) 0.6 Baso % (Auto) 0.5 Absolute Neuts (auto) 9.7 H Absolute Lymphs (auto) 1.05 Nucleated RBC % 0 PT 14.9 INR 1.2 APTT 33.8 Sodium 141 Potassium 3.3 L Chloride 109 H Carbon Dioxide 26.0 Anion Gap 6 BUN 31 H Creatinine 1.39 H Estim Creat Clear Calc 35.76 Est GFR (MDRD) Af Amer 63 Est GFR (MDRD) Non-Af 52 L BUN/Creatinine Ratio 22.3 H Glucose 126 H Calcium 8.6 Troponin I High Sens 11 Radiography Diagnostic Testing: Clinical Impression(s) from Imaging Studies Brain CT 09/12/22 14:47 IMPRESSION: Chronic involutional changes of the brain. Stable examination. N.B. : The above Results were Read Back by Avery Torre MD to Dr Pepper MD, and understanding confirmed on 09/12/2022 15:08:26 (ET). Electronically Signed: Avery Torre MD at 15:09 EST , ADDENDUM: 09/12/22 1516 IMPRESSION: Chronic involutional changes of the brain. Stable examination. N.B. : The above Results were Read Back by Avery Torre MD to Dr Pepper MD, and understanding confirmed on 09/12/2022 15:08:26 (ET). Electronically Signed: Avery Torre MD at 15:09 EST , Head/Neck CTA 09/12/22 14:47 IMPRESSION: Atherosclerotic plaque formation at the origin of the right internal carotid artery causing between 50 and 69% stenosis. Calcific plaques at the origin of the left internal carotid artery causing greater than 70% narrowing. Small right vertebral artery. N.B. : The above Results were Read Back by Avery Torre MD to Gautam Mclaughlin and understanding confirmed on 09/12/2022 15:12:04 (ET). Electronically Signed: Avery Torre MD at 15:13 EST , ADDENDUM: 09/12/22 1520 IMPRESSION: Atherosclerotic plaque formation at the origin of the right internal carotid artery causing between 50 and 69% stenosis. Calcific plaques at the origin of the left internal carotid artery causing greater than 70% narrowing. Small right vertebral artery. N.B. : The above Results were Read Back by Avery Torre MD to Gautam Mclaughlin and understanding confirmed on 09/12/2022 15:12:04 (ET). Electronically Signed: Avery Torre MD at 15:13 EST , EKG Initial EKG: Comments: Sinus rhythm with rate of 80 bpm with no acute ST segment changes noted Discharge Plan Triage Chief Complaint: Neuro S/Sx ED Provider: Gautam Mclaughlin Dx/Rx/DC Orders Clinical Impression: Acute CVA (cerebrovascular accident), History of hypercholesterolemia, History of stroke Prescriptions: No Action atorvastatin 40 mg tablet 40 mg PO DAILY Label Comments: take 1 tablet by mouth once daily clopidogrel 75 mg tablet 75 mg PO DAILY Label Comments: take 1 tablet by mouth once daily tamsulosin 0.4 mg capsule 0.8 mg PO DAILY Label Comments: take 2 capsules by mouth once daily amlodipine 10 mg tablet 10 mg PO DAILY Label Comments: take 1 tablet by mouth once daily pantoprazole 40 mg tablet,delayed release (DR/EC) 40 mg PO DAILY Label Comments: take 1 tablet by mouth once daily ipratropium-albuterol 0.5 mg-3 mg(2.5 mg base)/3 mL Solution For Nebulization 3 ml inhalation Q4HWA.RT Qty: 0 0RF sennosides-docusate sodium [Stool Softener-Stimulant Laxat] 8.6-50 mg Tablet 2 tab PO BID PRN PRN (Reason: Constipation) Qty: 0 0RF melatonin 3 mg Tablet 3 mg PO QHS PRN PRN (Reason: Insomnia) Qty: 0 0RF levofloxacin 750 mg Tablet 750 mg PO Q48@0600 Qty: 0 0RF enoxaparin 30 mg/0.3 mL Syringe 30 mg subcut BID Qty: 0 0RF dexamethasone 6 mg tablet 6 mg PO DAILY Qty: 6 0RF clopidogrel 75 mg tablet 75 mg PO DAILY Primary Care Provider: Noah Oneil Referrals: Noah Oneil MD [Primary Care Provider] - Disposition Disposition: DC/Tx to Another Type of HCF
[2022-09-12 15:06] LABS: Absolute Lymphocyte Count 1.05 X10^3/uL (0.83-4.51); Absolute Neutrophil Count 9.7 X10^3/uL (2.0-7.7); Basophil# 0.06 X10^3/uL; Basophil% 0.5 % (0-1); Eosinophil# 0.07 X10^3/uL; Eosinophils% 0.6 % (0-5); Hematocrit 41.6 % (40-54); Hemoglobin 13.5 g/dL (13.0-16.5); Lymphocyte # 1.05 X10^3/ul (0.83-4.51); Lymphocyte % 8.6 % (19-41); Mean Corp Hgb Conc 32.5 g/dL (32-36); Mean Corpuscular Hgb 28.3 pg (27.0-32.0); Mean Corpuscular Volume 87.2 fL (80-94); Mean Platelet Vol. 9.2 fl (6.2-12.0); Monocyte# 1.03 X10^3/uL; Monocyte% 8.5 % (0-10); NRBC Flagged by Analyzer 0 % (0-5); Neutrophil # 9.65 X10^3/uL (2.7-7.7); Neutrophil % 79.4 % (47-70); Platelet Count 406 K/mm3 (150-450); RBC Distribution Width CV 14.7 % (11.6-14.6); RBC Distribution Width SD 47.2 fl (35.1-43.9); Red Blood Count 4.77 M/mm3 (4.6-6.2); White Blood Count 12.2 K/mm3 (4.4-11.0)
[2022-09-12] MEDS: 0.9% Normal Saline 1,000 ML 100 ML IV (15:12)
[2022-09-12 15:15] LABS: International Normalized Ratio 1.2; Prothrombin Time (Protime)PT. 14.9 SECONDS (11.7-14.9)
[2022-09-12 15:16] LABS: Partial Thromboplast Time 33.8 Seconds (24.1-36.2)
--- NOTE | 2022-09-12 15:28 | NURSING ---
ACCEPTED AT [facility]
[2022-09-12 15:31] LABS: Anion Gap 6 (5-15); BUN 31 mg/dL (7-18); BUN/Creat Ratio 22.3 RATIO (10-20); Calcium,Total 8.6 mg/dL (8.5-10.1); Chloride 109 mmol/L (98-107); Creatinine, Serum 1.39 mg/dL (0.70-1.30); EST Glomerular Filtration Rate 52 mL/min (>60); Est Glom Filt Rate - Afr Amer 63 mL/min (>60); Estimated Creatinine Clearance 35.76 ml/min; Glucose 126 mg/dL (74-106); Potassium 3.3 mmol/L (3.5-5.1); Sodium Level 141 mmol/L (136-145); Troponin-I HS 11 pg/mL (3.0-78.0)
--- NOTE | 2022-09-12 15:39 | NURSING ---
CALLED [facility], ETA IS 45 MIN
[2022-09-12] MEDS: fentaNYL 100 MCG/2 ML Ampul 25 MCG IV (15:49)
--- NOTE | 2022-09-12 16:10 | CHAPLAIN ---
Type of Pastoral Visit ___ Initial Visit ___ Follow-up Visit ___ On-call Visit ___ General Patient Visit ___ Spiritual Assessment ___ Family Conference ___ Bereavement _x__ Rapid Response ___ Code Blue ___ Other (describe below) Pastoral Care Referral From ___ Patient ___ Family ___ Nurse ___ Physician ___ Viscosity Worker ___ Toilet Attendant _x__ Other (describe below) Sacrament/Intervention ___ Active listening ___ Anointing ___ Restorationist ___ Bereavement ___ Communion ___ Rebecca exploration ___ ___ Life review ___ Prayer ___ Reconciliation ___ Sacrament of Sick _x__ Supportive presence ___ Wedding ___ Other (describe below) Pastoral Comments came to ED for the stroke alert; pt came by squad and taken to CT; pt was able to talk; no family members were present at the time; will be available as needed
== END 2022-09-12 16:55 | disposition other institution (70) ==
PROVIDERS: Emergency Provider Emergency Medicine; PCP Family Medicine; Visit Provider Emergency Medicine
DX: I63.233 Cerebral infarction due to unspecified occlusion or stenosis of bilateral carotid arteries (principal); Z87.891 Personal history of nicotine dependence; R47.81 Slurred speech; Z86.73 Personal history of transient ischemic attack (TIA), and cerebral infarction without residual deficits; E78.00 Pure hypercholesterolemia, unspecified
CPT/HCPCS: 70450; 70496; 70498; 80048; 84484; 85025; 85610; 85730; 93005; 99285; J7030; Q9967; A4216